=== PATIENT | female | born 1985 | race Caucasian/White ===

== ENCOUNTER 2017-12-14 05:24 | Observation (INO) | payer SELFPAY ==
[~2017-12-14] VITALS: Ht 165.1 cm; Wt 106.6 kg
[2017-12-14] MEDS ORDERED: SODIUM CHLORIDE 0.9% 1000ML 1,000 ML IV STA (05:41)
[2017-12-14] MEDS ORDERED: MoRPHine SULFATE 4 MG/ML 1 ML CARP\\VIAL IV STA ×2 (05:41→07:25)
[2017-12-14] MEDS ORDERED: SODIUM CHLORIDE 0.9% 500ML 500 ML IV STA (05:41)
[2017-12-14] MEDS ORDERED: ONDANSETRON INJ 2 MG/ML 2 ML VIAL IV STA (05:41)
--- NOTE | 2017-12-14 05:47 | EMERGENCY ROOM VISIT NOTE ---
History Report prepared by Silva: Christopher Gee Under the Supervision of: Dr. Livia Ortega M.D. First contact with patient: 05:32 Chief Complaint: ABDOMINAL PAIN Stated Complaint: PAIN IN STOMACH,VOMITING BROWN/BLACK History of Present Illness The patient is a 31 year old female who presents to the Emergency Room with complaints of constant abdominal pain starting around 0300 this morning which is worse with palpation. The patient states that the pain woke her up from sleep and goes into her back, and she has been vomiting up brown vomit. She denies any diarrhea, fever, or blood in her vomit. She states that she felt fine before this, and she had fried chicken and tajik fries for dinner. The patient denies any gall bladder issues in the past, and she still has it. The patient denies any chance of or any medical problems. She states that she smokes a half pack of cigarettes daily. Source of History: patient Onset: 0300 Position: abdomen Timing: constant Modifying Factors (Worsening): other (palpation) Associated Symptoms: + vomiting, No fevers, No diarrhea Review of Systems See HPI for pertinent positives & negatives. A total of 10 systems reviewed and were otherwise negative. Past Medical & Surgical Surgical Problems: (1) H/O tubal ligation (2) History of Family History Patient reports no known family medical history. Social History Smoking Status: Current Every Day Smoker Marital Status: Housing Status: lives with family Current/Historical Medications No Active Prescriptions or Reported Meds Allergies Coded Allergies: No Known Allergies (Unverified , 12/14/17) Physical Exam Vital Signs Date Time Temp Pulse Resp B/P (MAP) Pulse Ox O2 Delivery O2 Flow Rate FiO2 12/14/17 06:12 72 16 110/65 95 Room Air 12/14/17 05:27 36.6 94 18 123/83 99 Room Air Physical Exam Vital signs reviewed. General: Well-appearing female, in no significant distress. HEENT: No scleral icterus, PERRLA, neck supple. Atraumatic. Cardiovascular: Regular rate and rhythm, no extra sounds. Pulmonary: Clear to auscultation bilaterally, normal work of breathing. Abdomen: Tender to palpation in the right upper quadrant with mild left CVA tenderness. Soft, nondistended, positive bowel sounds. Musculoskeletal: Atraumatic, no peripheral edema. Neurologic: Patient awake alert and oriented x 3 Skin: Warm, dry, no rash Medical Decision & Procedures ER Provider Diagnostic Interpretation: Radiology results as stated below per my review and radiologist interpretation: BILIARY ULTRASOUND CLINICAL HISTORY: Epigastric pain COMPARISON STUDY: No previous studies for comparison. FINDINGS: The study was slightly difficult to technical standpoint due to the patient's large body habitus. The body of pancreas appear normal. The tail was nonvisualized. No focal hepatic masses are visualized. There are multiple gallstones. This includes a stone within the gallbladder neck. There is also an equivocal calculus in the region of the left main hepatic duct at the oliva hepatis level. There is no gallbladder wall thickening or pericholecystic fluid. There is no ductal dilatation. The common bile duct measures 5 mm. IMPRESSION: 1. Extensive cholelithiasis 2. Equivocal calculus in the region of the left main hepatic duct 3. No evidence of common bile duct dilatation Electronically signed by: Gerry Holm M.D. 12/14/2017 7:15 AM Dictated Date/Time: 12/14/2017 7:12 AM ABDOMEN 2VIEW W/PA CHEST RTN CLINICAL HISTORY: epigastric pain, vomiting COMPARISON STUDY: No previous studies for comparison. FINDINGS: The erect chest reveals no evidence of free air. There is no evidence of focal pulmonary consolidation.] Erect and supine views of the abdomen reveal no abnormally dilated loops of large or small bowel. There are no transition zone to indicate bowel obstruction. A curvilinear density within the left pelvis, while nonspecific likely represents enteric contents IMPRESSION: No evidence of bowel obstruction. No evidence of free air. Electronically signed by: Gerry Holm M.D. 12/14/2017 6:58 AM Dictated Date/Time: 12/14/2017 6:57 AM Laboratory Results 12/14/17 05:40 Red Blood Count 5.12, Mean Corpuscular Volume 85.2, Mean Corpuscular Hemoglobin 29.7, Mean Corpuscular Hemoglobin Concent 34.9, Mean Platelet Volume 10.1, Neutrophils (%) (Auto) 69.2, Lymphocytes (%) (Auto) 22.3, Monocytes (%) (Auto) 6.2, Eosinophils (%) (Auto) 1.8, Basophils (%) (Auto) 0.2, Neutrophils # (Auto) 7.91, Lymphocytes # (Auto) 2.55, Monocytes # (Auto) 0.71, Eosinophils # (Auto) 0.21, Basophils # (Auto) 0.02 12/14/17 05:40 Test 12/14/17 05:35 12/14/17 05:40 Urine Color YELLOW Urine Appearance CLOUDY (CLEAR) Urine pH 5.5 (4.5-7.5) Urine Specific [place] 1.022 (1.000-1.030) Urine Protein NEG (NEG) Urine Glucose (UA) NEG (NEG) Urine Ketones NEG (NEG) Urine Occult Blood NEG (NEG) Urine Nitrite NEG (NEG) Urine Bilirubin NEG (NEG) Urine Urobilinogen NEG (NEG) Urine Leukocyte Esterase NEG (NEG) Urine WBC (Auto) 1-5 /hpf (0-5) Urine RBC (Auto) 0-4 /hpf (0-4) Urine Hyaline Casts (Auto) 1-5 /lpf (0-5) Urine Epithelial Cells (Auto) >30 /lpf (0-5) Urine Bacteria (Auto) NEG (NEG) Urine Test NEG (NEG) White Blood Count 11.43 K/uL (4.8-10.8) Red Blood Count 5.12 M/uL (4.2-5.4) Hemoglobin 15.2 g/dL (12.0-16.0) Hematocrit 43.6 % (37-47) Mean Corpuscular Volume 85.2 fL (80-100) Mean Corpuscular Hemoglobin 29.7 pg (25-34) Mean Corpuscular Hemoglobin Concent 34.9 g/dl (32-36) Platelet Count 291 K/uL (130-400) Mean Platelet Volume 10.1 fL (7.4-10.4) Neutrophils (%) (Auto) 69.2 % Lymphocytes (%) (Auto) 22.3 % Monocytes (%) (Auto) 6.2 % Eosinophils (%) (Auto) 1.8 % Basophils (%) (Auto) 0.2 % Neutrophils # (Auto) 7.91 K/uL (1.4-6.5) Lymphocytes # (Auto) 2.55 K/uL (1.2-3.4) Monocytes # (Auto) 0.71 K/uL (0.11-0.59) Eosinophils # (Auto) 0.21 K/uL (0-0.5) Basophils # (Auto) 0.02 K/uL (0-0.2) RDW Standard Deviation 40.1 fL (36.4-46.3) RDW Coefficient of Variation 12.9 % (11.5-14.5) Immature Granulocyte % (Auto) 0.3 % Immature Granulocyte # (Auto) 0.03 K/uL (0.00-0.02) Anion Gap 6.0 mmol/L (3-11) Est Creatinine Clear Calc Drug Dose 111.1 ml/min Estimated GFR () 100.1 Estimated GFR (Non- 86.4 BUN/Creatinine Ratio 12.6 (10-20) Calcium Level 10.0 mg/dl (8.5-10.1) Total Bilirubin 0.4 mg/dl (0.2-1) Direct Bilirubin < 0.1 mg/dl (0-0.2) Aspartate Amino Transf (AST/SGOT) 13 U/L (15-37) Alanine Aminotransferase (ALT/SGPT) 23 U/L (12-78) Alkaline Phosphatase 103 U/L (45-117) Total Protein 8.4 gm/dl (6.4-8.2) Albumin 3.7 gm/dl (3.4-5.0) Lipase 202 U/L (73-393) Laboratory results per my review. Medications Administered Medications (Trade) Dose Ordered Sig/Nelia Route Start Time Stop Time Status Last Admin Dose Admin Sodium Chloride 500 ml @ 999 mls/hr Q31M STAT IV 12/14/17 05:41 12/14/17 06:11 DC 12/14/17 06:05 999 MLS/HR Sodium Chloride 1,000 ml @ 200 mls/hr Q5H STAT IV 12/14/17 05:41 12/14/17 10:40 12/14/17 06:05 200 MLS/HR Morphine Sulfate (MoRPHine SULFATE INJ) 4 mg NOW STAT IV 12/14/17 05:41 12/14/17 05:45 DC 12/14/17 06:06 4 MG Ondansetron HCl (Zofran Inj) 4 mg NOW STAT IV 12/14/17 05:41 12/14/17 05:45 DC 12/14/17 06:05 4 MG Morphine Sulfate (MoRPHine SULFATE INJ) 4 mg NOW STAT IV 12/14/17 07:25 12/14/17 07:26 DC 12/14/17 07:34 4 MG Cefoxitin Sodium (Mefoxin 2000mg/ 60 ml D5W) 2,000 mg NOW STAT IV 12/14/17 07:25 12/14/17 07:26 DC 12/14/17 07:49 2,000 MG ED Course 0532: Past medical records reviewed. The patient was evaluated in room A11. A complete history and physical examination was performed. 0541: Zofran 4mg IV, Morphine Sulfate 4mg IV, Sodium Chloride 1000 ml @ 200 mls/ hr IV, Sodium Chloride 500 ml @ 999 mls/hr IV 0718: I reevaluated the patient, and she was still in some pain. I discussed the the plan with her, and she was agreeable. 0725: Cefoxitin Sodium 2000mg IV, Morphine Sulfate 4mg IV 0729: I reviewed the patient's case with Ainsley Laguerre. She will evaluate the patient. 0743: I reviewed the patient's case with Dr. Shira Olvera Hospitalist. He will evaluate the patient for further management. Medical Decision Differential diagnosis: Etiologies such as appendicitis, diverticulitis, PUD, biliary pathology, UTI, pancreatitis, obstruction, mesenteric ischemia, aortic pathology, infections, inflammatory bowel disease, renal colic, as well as others were entertained. This patient was evaluated and appeared to be in no significant distress. The patient was hydrated with normal saline solution, given IV morphine and Zofran for pain. KUB reveals some fecal retention to my evaluation however the ultrasound of right upper quadrant is significant for cholelithiasis. There is a questionable hepatic duct stone. Patient was given 2 g of IV Mefoxin. The laboratory work does not indicate a significant biliary obstructive pathology. Patient did require an additional dose of IV morphine for continued pain. Case was discussed with Dr. Tomlin of general surgery through his [facility]. They have recommended medical admission with possible MRCP. Patient was made aware of the plan and agrees. Medication Reconcilliation Current Medication List: was personally reviewed by me Blood Pressure Screening Patient's blood pressure: Normal blood pressure Consults Time Called: 717 Consulting Physician: Ainsley Laguerre Returned Call: [phone] I reviewed the patient's case with [facility]. She will evaluate the patient. Additional Consults: Time Called: 0740 Consulted Physician: Dr. Shira Olvera Hospitalist Returned Call: 0743 Additional Comments: I reviewed the patient's case with Dr. Shira Olvera Hospitalist. He will evaluate the patient for further management. Impression Primary Impression: Symptomatic cholelithiasis Scribe Attestation The scribe's documentation has been prepared under my direction and personally reviewed by me in its entirety. I confirm that the note above accurately reflects all work, treatment, procedures, and medical decision making performed by me. Departure Information Dispostion Being Evaluated By Hospitalist Prescriptions No Active Prescriptions or Reported Meds Referrals No Doctor, Assigned (PCP) Patient Instructions My [facility]
[2017-12-14 05:56] LABS: BASO % 0.2 %; BASO ABS # 0.02 K/uL (0-0.2); EOS % 1.8 %; EOS ABS # 0.21 K/uL (0-0.5); HEMATOCRIT 43.6 % (37-47); HEMOGLOBIN 15.2 g/dL (12.0-16.0); IG# 0.03 K/uL (0.00-0.02); LYMPH % 22.3 %; LYMPH ABS # 2.55 K/uL (1.2-3.4); MEAN CELL VOLUME 85.2 fL (80-100); MEAN CORPUSCULAR HEMOGLOBIN 29.7 pg (25-34); MEAN CORPUSCULAR HGB CONC 34.9 g/dl (32-36); MEAN PLATELET VOLUME 10.1 fL (7.4-10.4); MONO % 6.2 %; MONO ABS # 0.71 K/uL (0.11-0.59); NEUT % 69.2 %; NEUT ABS # 7.91 K/uL (1.4-6.5); PLATELET COUNT 291 K/uL (130-400); RED CELL DISTRIBUTION WIDTH CV 12.9 % (11.5-14.5); RED CELL DISTRIBUTION WIDTH SD 40.1 fL (36.4-46.3); WHITE BLOOD COUNT 11.43 K/uL (4.8-10.8)
[2017-12-14 06:08] LABS: ALBUMIN 3.7 gm/dl (3.4-5.0); ALT/SGPT 23 U/L (12-78); AST/SGOT 13 U/L (15-37); BLOOD UREA NITROGEN 11 mg/dl (7-18); CARBON DIOXIDE 24 mmol/L (21-32); CREATININE 0.89 mg/dl (0.60-1.20); GLUCOSE 104 mg/dl (70-99); LIPASE 202 U/L (73-393); POTASSIUM 3.9 mmol/L (3.5-5.1); SODIUM 136 mmol/L (136-145)
[2017-12-14 06:11] LABS: ALKALINE PHOSPHATASE 103 U/L (45-117); TOTAL PROTEIN 8.4 gm/dl (6.4-8.2)
--- NOTE | 2017-12-14 06:59 | DIAGNOSTIC IMAGING REPORT ---
ABDOMEN 2VIEW W/PA CHEST RTN CLINICAL HISTORY: epigastric pain, vomiting COMPARISON STUDY: No previous studies for comparison. FINDINGS: The erect chest reveals no evidence of free air. There is no evidence of focal pulmonary consolidation.] Erect and supine views of the abdomen reveal no abnormally dilated loops of large or small bowel. There are no transition zone to indicate bowel obstruction. A curvilinear density within the left pelvis, while nonspecific likely represents enteric contents IMPRESSION: No evidence of bowel obstruction. No evidence of free air. Electronically signed by: Gerry Holm M.D. 12/14/2017 6:58 AM Dictated Date/Time: 12/14/2017 6:57 AM
--- NOTE | 2017-12-14 07:16 | DIAGNOSTIC IMAGING REPORT ---
BILIARY ULTRASOUND CLINICAL HISTORY: Epigastric pain COMPARISON STUDY: No previous studies for comparison. FINDINGS: The study was slightly difficult to technical standpoint due to the patient's large body habitus. The body of pancreas appear normal. The tail was nonvisualized. No focal hepatic masses are visualized. There are multiple gallstones. This includes a stone within the gallbladder neck. There is also an equivocal calculus in the region of the left main hepatic duct at the oliva hepatis level. There is no gallbladder wall thickening or pericholecystic fluid. There is no ductal dilatation. The common bile duct measures 5 mm. IMPRESSION: 1. Extensive cholelithiasis 2. Equivocal calculus in the region of the left main hepatic duct 3. No evidence of common bile duct dilatation Electronically signed by: Gerry Holm M.D. 12/14/2017 7:15 AM Dictated Date/Time: 12/14/2017 7:12 AM
[2017-12-14] MEDS ORDERED: CEFOXITIN 2000MG/60 ML D5W IV STA (07:25)
[2017-12-14 08:29] VITALS: O2SAT 99; Ht 165.1 cm; Wt 106.6 kg
[2017-12-14] MEDS ORDERED: ONDANSETRON INJ 2 MG/ML 2 ML VIAL IV PRN (08:30)
[2017-12-14] MEDS ORDERED: POLYETHYLENE (MIRALAX) 17 GM PACK PO PRN (08:30)
[2017-12-14] MEDS ORDERED: ACETAMINOPHEN 325 MG TAB PO PRN (08:30)
[2017-12-14] MEDS ORDERED: CEFOXITIN IV 2,000 MG in DEXTROSE 5% 50ML 50 ML IV SCH (08:45)
--- NOTE | 2017-12-14 08:59 | History and Physical ---
History & Physical Date & Time of Service: Dec 14, 2017 at 08:38 Chief Complaint: Pain In Stomach,Vomiting Brown/Black Primary Care Physician: No Doctor, Assigned History of Present Illness Source: patient, clinic records, hospital records Pt is 31 y/o F with PMH depression presents to ER with C/O RUQ pain and vomiting started last night around 0300. Woke up with sharp pain to RUQ and epigastric region with nausea and vomiting x 6 episodes brown/yellow color color emesis. Pt states ate fried chicken and macanese fries at approx 2100 yesterday. No prior treatment to ER arrival. She states in past has had mild intermittent RUQ pain during middle of the night but usually only lasts minutes and able to fall back asleep. Unsure any relation with foods. Hx x 2 and tubal ligation, denies other abdominal surgeries. Denies ETOH use. Denies fever/chills, diaphoresis, hematemesis, diarrhea, constipation, melena, hematochezia, RENEE, dizziness, syncope, vision changes, neck pain, CP, SOB, palpitations, cough, extremity edema, rashes, urinary symptoms. FH mother with cholecystomy. In ER pt afebrile. WBC: 11.4. Normal LFT's. negative U/A. Gallbladder u/s: cholelithiasis, equivocal calculus in region L main hepatic duct. Pt was given 500ml bolus NSS, zofran, morphine total 8mg, cefoxitin. Past Medical/Surgical History Medical Problems: (1) Bacterial conjunctivitis of left eye Status: Resolved (2) Otitis media Status: Resolved (3) Pharyngitis Status: Resolved (4) Sinusitis Status: Resolved Surgical Problems: (1) H/O tubal ligation Status: Resolved (2) History of Status: Resolved Family History Diabetes mellitus FH: hyperlipidemia Hypertension Stroke Social History Smoking Status: Current Every Day Smoker (0.5-1ppd x 18 years) Smokeless Tobacco Use: No Alcohol Use: none Drug Use: none Marital Status: Housing status: lives with family Allergies Coded Allergies: No Known Allergies (Unverified , 12/14/17) Home Medications No Active Prescriptions or Reported Meds Review of Systems Constitutional: No fever, No chills, No sweats, No weight loss, No weakness Eyes: No eye pain, No redness, No discharge ENT: No unusual epistaxis, No nasal symptoms, No sore throat Respiratory: No cough, No sputum, No wheezing, No shortness of breath Cardiovascular: No chest pain, No edema, No palpitations Abdomen: + problem reported (see HPI) Musculoskeletal: No joint pain, No muscle pain, No swelling Genitourinary - Female: No dysuria, No urinary frequency, No urinary urgency, No urinary incontinence, No urinary retention, No hematuria Neurologic: No numbness/tingling, No vertigo Psychiatric: + depression symptoms (hx depression several years ago. not on medications for several years and reports stable, no suicidal ideations), No anxiety, No substance abuse Endocrine: No excessive thirst, No excessive urination Hematologic / Lymphatic: No abnormal bleeding/bruising, No clotting problems Integumentary: No rash, No itch Physical Exam Vital Signs Date Time Temp Pulse Resp B/P (MAP) Pulse Ox O2 Delivery O2 Flow Rate FiO2 12/14/17 08:28 59 16 103/65 99 12/14/17 06:12 72 16 110/65 95 Room Air 12/14/17 05:27 36.6 94 18 123/83 99 Room Air General Appearance: no apparent distress (resting comfortably in bed, non ill appearing), + obese Head: normocephalic, atraumatic Eyes: normal inspection, sclerae normal ENT: hearing grossly normal, pharynx normal, + pertinent finding (mucous membranes moist) Neck: supple, trachea midline Respiratory/Chest: chest non-tender, lungs clear, normal breath sounds, no respiratory distress Cardiovascular: regular rate, rhythm, no murmur Abdomen/GI: normal bowel sounds, soft, + pertinent finding (+tenderness to palpation RUQ and epigastric, positive fink's sign, no rebound or guarding) Back: + pertinent finding (+right flank tenderness to palpation, ROM intact) Extremities/Musculoskelatal: normal inspection, normal capillary refill, no pedal edema, normal range of motion Neurologic/Psych: alert, normal mood/affect, oriented x 3 Skin: normal color, warm/dry Diagnostics Laboratory Results Results Past 24 Hours Test 12/14/17 05:35 12/14/17 05:40 Range/Units Urine Color YELLOW Urine Appearance CLOUDY CLEAR Urine pH 5.5 4.5-7.5 Urine Specific [place] 1.022 1.000-1.030 Urine Protein NEG NEG Urine Glucose (UA) NEG NEG Urine Ketones NEG NEG Urine Occult Blood NEG NEG Urine Nitrite NEG NEG Urine Bilirubin NEG NEG Urine Urobilinogen NEG NEG Urine Leukocyte Esterase NEG NEG Urine WBC (Auto) 1-5 0-5 /hpf Urine RBC (Auto) 0-4 0-4 /hpf Urine Hyaline Casts (Auto) 1-5 0-5 /lpf Urine Epithelial Cells (Auto) >30 0-5 /lpf Urine Bacteria (Auto) NEG NEG Urine Test NEG NEG White Blood Count 11.43 4.8-10.8 K/uL Red Blood Count 5.12 4.2-5.4 M/uL Hemoglobin 15.2 12.0-16.0 g/dL Hematocrit 43.6 37-47 % Mean Corpuscular Volume 85.2 80-100 fL Mean Corpuscular Hemoglobin 29.7 25-34 pg Mean Corpuscular Hemoglobin Concent 34.9 32-36 g/dl Platelet Count 291 130-400 K/uL Mean Platelet Volume 10.1 7.4-10.4 fL Neutrophils (%) (Auto) 69.2 % Lymphocytes (%) (Auto) 22.3 % Monocytes (%) (Auto) 6.2 % Eosinophils (%) (Auto) 1.8 % Basophils (%) (Auto) 0.2 % Neutrophils # (Auto) 7.91 1.4-6.5 K/uL Lymphocytes # (Auto) 2.55 1.2-3.4 K/uL Monocytes # (Auto) 0.71 0.11-0.59 K/uL Eosinophils # (Auto) 0.21 0-0.5 K/uL Basophils # (Auto) 0.02 0-0.2 K/uL RDW Standard Deviation 40.1 36.4-46.3 fL RDW Coefficient of Variation 12.9 11.5-14.5 % Immature Granulocyte % (Auto) 0.3 % Immature Granulocyte # (Auto) 0.03 0.00-0.02 K/uL Sodium Level 136 136-145 mmol/L Potassium Level 3.9 3.5-5.1 mmol/L Chloride Level 106 98-107 mmol/L Carbon Dioxide Level 24 21-32 mmol/L Anion Gap 6.0 3-11 mmol/L Blood Urea Nitrogen 11 7-18 mg/dl Creatinine 0.89 0.60-1.20 mg/dl Est Creatinine Clear Calc Drug Dose 111.1 ml/min Estimated GFR () 100.1 Estimated GFR (Non- 86.4 BUN/Creatinine Ratio 12.6 10-20 Random Glucose 104 70-99 mg/dl Calcium Level 10.0 8.5-10.1 mg/dl Total Bilirubin 0.4 0.2-1 mg/dl Direct Bilirubin < 0.1 0-0.2 mg/dl Aspartate Amino Transf (AST/SGOT) 13 15-37 U/L Alanine Aminotransferase (ALT/SGPT) 23 12-78 U/L Alkaline Phosphatase 103 45-117 U/L Total Protein 8.4 6.4-8.2 gm/dl Albumin 3.7 3.4-5.0 gm/dl Lipase 202 73-393 U/L Diagnostic Radiology BILIARY U/S There is no gallbladder wall thickening or pericholecystic fluid. There is no ductal dilatation. The common bile duct measures 5 mm. IMPRESSION: 1. Extensive cholelithiasis 2. Equivocal calculus in the region of the left main hepatic duct 3. No evidence of common bile duct dilatation ABDOMEN 2VIEW W/PA CHEST IMPRESSION: No evidence of bowel obstruction. No evidence of free air. Impression Assessment and Plan RUQ ABDOMINAL PAIN/CHOLELITHIASIS Pt with onset RUQ pain and vomiting 0300 today after eating fried chicken and macanese fries for dinner night before. In ER pt afebrile. Vitals stable. WBC: 11.4. Normal LFT's. negative U/A. Gallbladder u/s: cholelithiasis, equivocal calculus in region L main hepatic duct. Pt was given 500ml bolus NSS, zofran, morphine total 8mg, cefoxitin. Surgery consulted recommended MRCP. -NSS @125ml/hr -morphine prn pain -NPO -general surgery consult -MRCP ordered, if abnormal will consult GI -pt, ptt labs added -CBC, liver enzymes, prp in AM HX DEPRESSION Pt not on meds for several years. Stable. Normal mood and affect today. DVT PROPHYLAXIS -SCD DISPOSITION -admit med surg -Full Code -Follows with Cyndee Doherty [facility] for routine care Pt was seen with Dr Silva. See addendum Attending Addendum Pt was seen and examined. Agreed with Alena HAMMER exam, assessment and plan. 31 y /o F with PMH depression, obese presents to ER with C/O RUQ pain associated with multiple episodes of vomiting. Pt described pain as sharp and starting in her epigastric area that radiated to RUQ area. Denies fever/chills, CP, SOB, palpitations, cough, and urinary symptoms. She had a gallbladder U/S done in the ER that showed extensive cholelithiasis and equivocal calculus in the region of the left main hepatic duct with no evidence of common bile duct dilatation. Received morphine in the ER that helped with the pain. Will keep NPO for now, will get an MRCP. Continue pain control and IVF. Surgery consult. Will monitor electrolytes. Please refer to Alena HAMMER documentation for other problems MD Shira Level of Care Med/Surg Resuscitation Status FULL RESUSCITATION VTE Prophylaxis VTE Risk Assessment Done? Y/N: Yes Risk Level: Low Given or contraindicated: SCD's Additional Copies To Cyndee Evans
[2017-12-14 09:01] LABS: INR 0.9 (0.9-1.1); PTT PATIENT 28.6 SECONDS (21.0-31.0)
[2017-12-14] MEDS ORDERED: IV FLUIDS COMPLETED PRN (10:00)
[2017-12-14] MEDS ORDERED: INFLUENZA VIRUS QUAD VACCINE 0.5 ML SYR IM. ONE (10:00)
[2017-12-14] MEDS ORDERED: INFLUENZA ADMINISTRATION CHARGE ONE (10:00)
--- NOTE | 2017-12-14 10:02 | Surgery Consultation ---
Consultation Date of Consultation: Dec 14, 2017. Attending Physician: Julio Silva M.D. History of Present Illness Pt is 31 y/o F with PMH depression presents to ER with C/O RUQ pain and vomiting started last night around 0300. Woke up with sharp pain to RUQ and epigastric region with nausea and vomiting x 6 episodes brown/yellow color color emesis. Pt states ate fried chicken and spanish fries at approx 2100 yesterday. No prior treatment to ER arrival. She states in past has had mild intermittent RUQ pain during middle of the night but usually only lasts minutes and able to fall back asleep. Unsure any relation with foods. Hx x 2 and tubal ligation, denies other abdominal surgeries. Denies ETOH use. Denies fever/chills, diaphoresis, hematemesis, diarrhea, constipation, melena, hematochezia, RENEE, dizziness, syncope, vision changes, neck pain, CP, SOB, palpitations, cough, extremity edema, rashes, urinary symptoms. FH mother with cholecystomy. In ER pt afebrile. WBC: 11.4. Normal LFT's. negative U/A. Gallbladder u/s: cholelithiasis, equivocal calculus in region L main hepatic duct. Pt was given 500ml bolus NSS, zofran, morphine total 8mg, cefoxitin. I saw pt at bedside, I reviewed pt's H/P with pt, pt is still have some RUQ pain , no nausea, no vomiting, no fever, pt denies diarrhea, Past Medical/Surgical History Medical Problems: (1) Symptomatic cholelithiasis Status: Acute Family History Diabetes mellitus FH: hyperlipidemia Hypertension Stroke Social History Smoking Status: Current Every Day Smoker (0.5-1ppd x 18 years) Smokeless Tobacco Use: No Alcohol Use: none Drug Use: none Marital Status: Housing Status: lives with family Allergies Coded Allergies: No Known Allergies (Unverified , 12/14/17) Home Medications No Active Prescriptions or Reported Meds Current Inpatient Medications Current Inpatient Medications Medications (Trade) Dose Ordered Sig/Nelia Route Start Time Stop Time Status Last Admin Dose Admin Acetaminophen (Tylenol Tab) 650 mg Q4H PRN PO 12/14/17 08:30 01/13/18 08:29 Polyethylene (Miralax Powder Packet) 17 gm DAILY PRN PO 12/14/17 08:30 01/13/18 08:29 Ondansetron HCl (Zofran Inj) 4 mg Q6H PRN IV 12/14/17 08:30 01/13/18 08:29 Morphine Sulfate (MoRPHine SULFATE INJ) 2 mg Q2HWA PRN IV 12/14/17 08:45 12/28/17 08:44 Sodium Chloride 1,000 ml @ 125 mls/hr Q8H IV 12/14/17 08:45 01/13/18 08:44 Influenza Virus Vaccine Quadrival (Flucelvax Quad Vaccine) 0.5 ml ONCE ONCE IM. 12/14/17 10:00 12/14/17 10:01 Review of Systems Constitutional: No fever, No chills, No sweats, No weight loss, No weakness, No fatigue, No problem reported Eyes: No worsening of vision, No eye pain, No redness, No discharge, No diplopia, No problem reported ENT: No hearing loss, No unusual epistaxis, No nasal symptoms, No sore throat, No tinnitus, No dental problems, No trouble swallowing, No problem reported Respiratory: No cough, No sputum, No wheezing, No shortness of breath, No dyspnea on exertion, No dyspnea at rest, No hemoptysis, No problem reported Cardiovascular: No chest pain, No orthopnea, No PND, No edema, No claudication , No palpitations, No problem reported Abdomen: + pain, + nausea Musculoskeletal: No joint pain, No muscle pain, No swelling, No calf pain, No problem reported Genitourinary - Female: No dysuria, No urinary frequency, No urinary urgency, No urinary incontinence, No urinary retention, No hematuria, No dysmenorrhea, No menorrhagia, No metrorrhagia, No rash, No vaginal bleeding, No vaginal discharge, No vaginal itching, No vulvodynia, No , No problem reported Neurologic: No memory loss, No paralysis, No weakness, No numbness/tingling, No vertigo, No balance problems, No problem reported Psychiatric: No depression symptoms, No anhedonism, No anxiety, No insomnia, No substance abuse, No problem reported Endocrine: No fatigue, No excessive thirst, No excessive urination, No problem reported Hematologic / Lymphatic: No abnormal bleeding/bruising, No clotting problems, No swollen lymph nodes, No night sweats, No problem reported Physical Exam Date Time Temp Pulse Resp B/P (MAP) Pulse Ox O2 Delivery O2 Flow Rate FiO2 12/14/17 08:29 99 Room Air 12/14/17 08:28 59 16 103/65 99 12/14/17 06:12 72 16 110/65 95 Room Air 12/14/17 05:27 36.6 94 18 123/83 99 Room Air General Appearance: WD/WN, no apparent distress Head: normocephalic Eyes: normal inspection ENT: normal ENT inspection Neck: supple, no JVD Respiratory/Chest: chest non-tender, lungs clear, normal breath sounds Cardiovascular: regular rate, rhythm, no edema, no gallop, no JVD, no murmur Abdomen/GI: normal bowel sounds, soft, no organomegaly, no pulsatile mass, normal rectal exam, + tenderness (tenderness at RUQ, no rebound pain, ) Extremities/Musculoskelatal: normal inspection, no calf tenderness, normal capillary refill Neurologic/Psych: no motor/sensory deficits, alert, normal mood/affect Skin: normal color, warm/dry, no rash Lymphatic: no adenopathy Laboratory Results Last 24 Hours Test 12/14/17 05:35 12/14/17 05:40 Urine Color YELLOW Urine Appearance CLOUDY Urine pH 5.5 Urine Specific Weidman 1.022 Urine Protein NEG Urine Glucose (UA) NEG Urine Ketones NEG Urine Occult Blood NEG Urine Nitrite NEG Urine Bilirubin NEG Urine Urobilinogen NEG Urine Leukocyte Esterase NEG Urine WBC (Auto) 1-5 /hpf Urine RBC (Auto) 0-4 /hpf Urine Hyaline Casts (Auto) 1-5 /lpf Urine Epithelial Cells (Auto) >30 /lpf Urine Bacteria (Auto) NEG Urine Test NEG White Blood Count 11.43 K/uL Red Blood Count 5.12 M/uL Hemoglobin 15.2 g/dL Hematocrit 43.6 % Mean Corpuscular Volume 85.2 fL Mean Corpuscular Hemoglobin 29.7 pg Mean Corpuscular Hemoglobin Concent 34.9 g/dl Platelet Count 291 K/uL Mean Platelet Volume 10.1 fL Neutrophils (%) (Auto) 69.2 % Lymphocytes (%) (Auto) 22.3 % Monocytes (%) (Auto) 6.2 % Eosinophils (%) (Auto) 1.8 % Basophils (%) (Auto) 0.2 % Neutrophils # (Auto) 7.91 K/uL Lymphocytes # (Auto) 2.55 K/uL Monocytes # (Auto) 0.71 K/uL Eosinophils # (Auto) 0.21 K/uL Basophils # (Auto) 0.02 K/uL RDW Standard Deviation 40.1 fL RDW Coefficient of Variation 12.9 % Immature Granulocyte % (Auto) 0.3 % Immature Granulocyte # (Auto) 0.03 K/uL Prothrombin Time 9.6 SECONDS Prothromb Time International Ratio 0.9 Activated Partial Thromboplast Time 28.6 SECONDS Partial Thromboplastin Ratio 1.1 Sodium Level 136 mmol/L Potassium Level 3.9 mmol/L Chloride Level 106 mmol/L Carbon Dioxide Level 24 mmol/L Anion Gap 6.0 mmol/L Blood Urea Nitrogen 11 mg/dl Creatinine 0.89 mg/dl Est Creatinine Clear Calc Drug Dose 111.1 ml/min Estimated GFR () 100.1 Estimated GFR (Non- 86.4 BUN/Creatinine Ratio 12.6 Random Glucose 104 mg/dl Calcium Level 10.0 mg/dl Total Bilirubin 0.4 mg/dl Direct Bilirubin < 0.1 mg/dl Aspartate Amino Transf (AST/SGOT) 13 U/L Alanine Aminotransferase (ALT/SGPT) 23 U/L Alkaline Phosphatase 103 U/L Total Protein 8.4 gm/dl Albumin 3.7 gm/dl Lipase 202 U/L Assessment & Plan U/S study-FINDINGS: The study was slightly difficult to technical standpoint due to the patient's large body habitus. The body of pancreas appear normal. The tail was nonvisualized. No focal hepatic masses are visualized. There are multiple gallstones. This includes a stone within the gallbladder neck. There is also an equivocal calculus in the region of the left main hepatic duct at the oliva hepatis level. There is no gallbladder wall thickening or pericholecystic fluid. There is no ductal dilatation. The common bile duct measures 5 mm. IMPRESSION: 1. Extensive cholelithiasis 2. Equivocal calculus in the region of the left main hepatic duct 3. No evidence of common bile duct dilatation Assessment: pt is a 31 year old female who was admitted to hospital for acute cholecystitis with gallstones, IMP: acute cholecystitis, cholelithiasis Reocmmend: MRCP, to R/O left main hepatic duct stone, if so, need GI consult. Plan, I recommend to do laparoscopic cholecystectomy, possible open or cholangiogram tomorrow, D/W benefits, risks and alternatives of the procedure, the risks - infection, bleeding, injury CBD, bowel, biliary leak, may need ERCP , pt understood, she agrees with the plan, I answered all questions, NPO from [place] IV antibiotic
--- NOTE | 2017-12-14 10:53 | DIAGNOSTIC IMAGING REPORT ---
ORBIT RADIOGRAPHS 3 VIEWS HISTORY: pre-MRI screening. COMPARISON: None. FINDINGS: There are no radiopaque foreign bodies identified within the orbits. IMPRESSION: No radiopaque foreign bodies identified within the orbits. Electronically signed by: Gerry Holm M.D. 12/14/2017 10:52 AM Dictated Date/Time: 12/14/2017 10:51 AM
--- NOTE | 2017-12-14 11:45 | DIAGNOSTIC IMAGING REPORT ---
MRCP CLINICAL HISTORY: RUQ abd pain abnormal ultrasound. Equivocal left hepatic duct calculus COMPARISON STUDY: Ultrasound study dated 12/14/2017 FINDINGS: There are in numerable gallbladder calculi present. There is a calculus present within the gallbladder neck/proximal cystic duct. No intrahepatic calculi are visualized. There is no common bile duct dilatation. The common bile duct measures 3.7 mm. No common bile duct calculi are visualized. There is no pancreatic ductal dilatation. IMPRESSION: 1. Cholelithiasis 2. Calculi present within the gallbladder neck/proximal cystic duct 3. No common bile duct or intrahepatic biliary calculi are visualized 4. No evidence of common bile duct dilatation. Electronically signed by: Gerry Holm M.D. 12/14/2017 11:44 AM Dictated Date/Time: 12/14/2017 11:38 AM
[2017-12-14] MEDS: CEFOXITIN IV 2,000 MG in DEXTROSE 5% 50ML 50 ML IV SCH ×2 (13:34→20:05)
[2017-12-14 15:07] VITALS: BP 110/69; PULSE 78; TEMP 36.7; O2SAT 96
--- NOTE | 2017-12-14 16:02 | Progress Note ---
Progress Note Date of Service Dec 14, 2017. Progress Note Patient is a 31 year old F admitted with symptomatic gallstones. She has a medical history significant for 1ppd smoker and obesity. She has risk factors for SHAUNA but has never had witnessed apnea and has not had a sleep test. She also experiences gerd symptoms when supine and sometimes sleeps inclined because of this. She treats [id number] when necessary. Labs and studies were reviewed. Cardiopulmonary exam unremarkable and airway exam is reassuring. Risks and benefits of GETA discussed. She is appropriate to proceed as planned with lap solange on 12/15/17.
[2017-12-14] MEDS: SODIUM CHLORIDE 0.9% 1000ML 1,000 ML IV SCH (16:50)
[2017-12-14 22:54] VITALS: BP 114/74; PULSE 64; TEMP 36.8; O2SAT 98
[2017-12-14] MEDS: MoRPHine SULFATE 2 MG/ML CARP IV PRN (23:26)
[2017-12-15] VITALS (8 sets, daily range): BP systolic 104–116; BP diastolic 66–79; PULSE 66–101; TEMP 36.4–37.3; O2SAT 94–98
[2017-12-15] MEDS: SODIUM CHLORIDE 0.9% 1000ML 1,000 ML IV SCH ×4 (01:06→21:09)
[2017-12-15] MEDS: CEFOXITIN IV 2,000 MG in DEXTROSE 5% 50ML 50 ML IV SCH ×4 (02:04→20:00)
[2017-12-15 07:26] LABS: BASO % 0.3 %; BASO ABS # 0.02 K/uL (0-0.2); EOS % 2.7 %; EOS ABS # 0.21 K/uL (0-0.5); HEMOGLOBIN 12.8 g/dL (12.0-16.0); IG# 0.02 K/uL (0.00-0.02); LYMPH % 33.7 %; LYMPH ABS # 2.63 K/uL (1.2-3.4); MEAN CELL VOLUME 87.2 fL (80-100); MEAN CORPUSCULAR HEMOGLOBIN 29.4 pg (25-34); MEAN CORPUSCULAR HGB CONC 33.7 g/dl (32-36); MEAN PLATELET VOLUME 9.6 fL (7.4-10.4); MONO % 8.1 %; MONO ABS # 0.63 K/uL (0.11-0.59); NEUT % 54.9 %; PLATELET COUNT 229 K/uL (130-400); RED CELL DISTRIBUTION WIDTH CV 13.2 % (11.5-14.5); RED CELL DISTRIBUTION WIDTH SD 42.3 fL (36.4-46.3); WHITE BLOOD COUNT 7.81 K/uL (4.8-10.8)
[2017-12-15 08:04] LABS: ALBUMIN 2.7 gm/dl (3.4-5.0); ALT/SGPT 17 U/L (12-78); BLOOD UREA NITROGEN 9 mg/dl (7-18); CALCIUM 7.9 mg/dl (8.5-10.1); CARBON DIOXIDE 24 mmol/L (21-32); CREATININE 0.81 mg/dl (0.60-1.20); GLUCOSE 88 mg/dl (70-99); POTASSIUM 4.1 mmol/L (3.5-5.1); SODIUM 140 mmol/L (136-145)
[2017-12-15 08:07] LABS: ALKALINE PHOSPHATASE 71 U/L (45-117); AST/SGOT 11 U/L (15-37); TOTAL PROTEIN 5.9 gm/dl (6.4-8.2)
[2017-12-15] MEDS ORDERED: PHENYLEPHRINE 100MCG/ML 5ML SYR IV PRN (08:45)
[2017-12-15] MEDS ORDERED: EpHEDrine SULFATE INJ 50 MG/ML AMP IV PRN (08:45)
[2017-12-15] MEDS ORDERED: ONDANSETRON INJ 2 MG/ML 2 ML VIAL IV PRN (08:45)
[2017-12-15] MEDS ORDERED: ATROPINE SULFATE 0.1 MG/ML 5ML SYR IV PRN (08:45)
[2017-12-15] MEDS ORDERED: ONDANSETRON INJ 2 MG/ML 2 ML VIAL ONE ×2 (09:01→12:06)
[2017-12-15] MEDS ORDERED: FENTANYL CITRATE INJ 50 MCG/1 ML 2 ML VIAL ONE ×5 (09:01→13:29)
[2017-12-15] MEDS ORDERED: ROCURONIUM BROMIDE 10 MG/ML 5 ML VIAL IV ONE ×2 (09:01→12:28)
[2017-12-15] MEDS ORDERED: LIDOCAINE HCL 2% 2 ML VIAL (20MG/ML) ONE ×2 (09:01→12:06)
[2017-12-15] MEDS ORDERED: PROPOFOL IV EMULSION 10 MG/ML 20 ML VIAL IV ONE ×2 (09:01→12:06)
[2017-12-15] MEDS ORDERED: DEXAMETHASONE SOD INJ 4 MG/ML VIAL ONE ×2 (09:01→12:06)
[2017-12-15] MEDS ORDERED: MIDAZOLAM HCL 1 MG/ML 2ML VIAL ONE ×2 (09:02→12:06)
[2017-12-15] MEDS: BACITRACIN OINT 15 GM TUBE ONE ×2 (09:50→13:18)
[2017-12-15] MEDS ORDERED: LIDOCAINE HCL 1% 20 ML VIAL ONE ×2 (09:50→10:51)
[2017-12-15] MEDS ORDERED: CONRAY 60% 50 ML VIAL ONE (09:50)
[2017-12-15] MEDS ORDERED: BUPIVACAINE 0.5 % 5 MG/1 ML MPF 30ML VIAL ONE ×2 (09:50→10:52)
[2017-12-15] MEDS ORDERED: ACETAMINOPHEN 1000 MG/100 ML IV IV ONE (10:33)
--- NOTE | 2017-12-15 10:43 | History & Physical Bridge Note ---
H&P Re-Evaluation Bridge Note: I have examined the patient, reviewed the History & Physical and in the interval since the performance of the History & Physical I have noted the following changes of clinical significance: No changes noted
[2017-12-15] MEDS ORDERED: BACITRACIN OINT 15 GM TUBE ONE (10:52)
[2017-12-15] MEDS ORDERED: CEFAZOLIN SOD 1 GM VIAL ONE (12:06)
[2017-12-15] MEDS ORDERED: NEOSTIGMINE METHYLSULFATE 5 MG/5 ML SYR ONE (12:08)
[2017-12-15] MEDS ORDERED: SODIUM CHLORIDE 0.9% INJ 10 ML VIAL ONE (12:08)
[2017-12-15] MEDS ORDERED: GLYCOPYRROLATE INJ 0.2 MG/ML VIAL ONE (12:08)
--- NOTE | 2017-12-15 13:16 | [facility] Post Operative Brief Note ---
Immediate Operative Summary Operative Date Dec 15, 2017. Pre-Operative Diagnosis Acute cholecystitis with gallstones Post-Operative Diagnosis Acute cholecystitis with gallstones Procedure(s) Performed Subtotal Laparoscopic Cholecystectomy Surgeon Dr. Pati Tomlin Outdoor Guide Surgeon(s) Ainsley Guy PA-C Estimated Blood Loss 20 ml Findings Consistent with Post-Op Diagnosis severe inflammation on gallbladder, with gallstones Fluids (cc crystalloids) 800ml Specimens Permanent specimens A: Gallbladder and contents Drains JOE X 1 Anesthesia Type General Complication(s) none Disposition Accompanied Pt To Recover: yes Disposition: Recovery Room / PACU
[2017-12-15] MEDS: HYDROmorphone INJ 2 MG/ML SYR/VIAL IV PRN ×3 (13:43→13:57)
--- NOTE | 2017-12-15 14:11 | Anesthesiology Progress Note ---
Anesthesia Post Op Note Date & Time Dec 15, 2017 at 14:11 Vital Signs Pain Intensity: 0 Vital Signs Past 12 Hours Date Time Temp Pulse Resp B/P (MAP) Pulse Ox O2 Delivery O2 Flow Rate FiO2 12/15/17 14:00 62 14 116/71 96 Nasal Cannula 3 12/15/17 13:50 88 20 102/79 93 Oxymask 6 12/15/17 13:40 86 16 123/74 94 Oxymask 10 12/15/17 13:33 36.9 87 16 131/74 96 Oxymask 10 12/15/17 08:00 Room Air 12/15/17 07:15 36.8 66 16 104/70 (81) 94 Room Air Notes Mental Status: alert / awake / arousable, participated in evaluation Pt Amnestic to Procedure: Yes Nausea / Vomiting: adequately controlled Pain: adequately controlled Airway Patency, RR, SpO2: stable & adequate BP & HR: stable & adequate Hydration State: stable & adequate Anesthetic Complications: no major complications apparent
--- NOTE | 2017-12-15 14:42 | OPERATIVE REPORT ---
DATE OF OPERATION: 12/15/2017 PREOPERATIVE DIAGNOSES: Acute cholecystitis and cholelithiasis. POSTOPERATIVE DIAGNOSES: Same. OPERATION: Laparoscopic subtotal cholecystectomy and JOE drainage x1. SURGEON: Pati Tomlin MD STERILE INSTRUMENT TECHNICIAN: Ainsley Lares PA-C ANESTHESIA: General. ESTIMATED BLOOD LOSS: About 20 mL. IV FLUIDS: 800 mL. FINDINGS: Severe inflammation on the gallbladder wall and acute cholecystitis with cholelithiasis. COMPLICATIONS: None. INDICATIONS FOR THE PROCEDURE: This is a 31-year-old female who presented to the ED with severe right upper quadrant pain and the patient was admitted to the hospital for acute cholecystitis and cholelithiasis. We decided to take the patient to the OR and do a laparoscopic cholecystectomy, possible open and possible cholangiogram. I did talk to the patient and the patient's family member about the benefit, risk, and alternate procedure. I indicated the risks may include, but not limited such as bleeding, infection, bile leak, injury to common bile duct, injury to bowel, may need a subtotal cholecystectomy, and may need ERCP. They understand and the patient signed informed consent and I answered all questions. DETAILS OF PROCEDURE: We brought the patient to the OR and put the patient in the supine position. The patient received SCD on bilateral legs to prevent DVT. Also, the patient received 2 grams Ancef IV for prophylactic antibiotic. The patient received general anesthesia without difficulty. The abdomen was prepped and draped in the routine sterile fashion. After a timeout, I injected local anesthesia by using 1% lidocaine mixed with 0.5% Marcaine just above umbilicus. I made a small incision just above the umbilicus, opened fascia and opened peritoneum under direct vision. I put a Ector trocar in and connected to CO2 to create pneumoperitoneum, flow rate at 6 liter per minute and pressure not more than 14 mmHg. Once we get a nice pneumoperitoneum, we put the camera in to look around the abdomen, showing no more findings on the stomach, small bowel, large bowel and the liver; however, the gallbladder showing significant inflammation, gallbladder wall significant thickening, and edema. Then, we put another 3.5-mm trocar on the right upper quadrant. Once all trocars in, we hold the base of the gallbladder, put direction to the diaphragm and used another grasper to hold the pouch over the gallbladder, put latter to try to expose the triangle of Calot; however, based on the gallbladder's significant inflammation and edema, it was difficult to find the cystic duct. At this moment, we decided to do the subtotal cholecystectomy using top-down technique to take down 95% the gallbladder and we used the Endoloop to close near the gallbladder the cystic duct and another Endoloop about 1 cm away the first Endoloop and then I used Harmonic to take down 95% of the gallbladder and also at this moment, we identified the cystic artery and mobilized. I put two 5-mm metal clips on the proximal cystic artery, one on the distal and then I removed the most of the gallbladder, inside there are multiple gallstones and through the catch bag. Then, we reinserted a Ector trocar in and I used scissor to remove the Endoloop on the remainder of the gallbladder side and then opened the gallbladder lumen and removed couple of the gallstone and then, we double checked to make sure no stones left behind and at this moment, we decided to use the Endo-NEHAL staple, transection the gallbladder near the gallbladder cystic duct. Rechecked no active bleeding, no leak and then we removed piece of the gallbladder through the catch bag again. Hemostasis obtained. I decided to put one 10-mm JOE drainage near the liver bed and we removed all of the trocars under direct vision. No active bleeding from trocar sites. The pneumoperitoneum was released. Then, I used 3-0 Vicryl to close the umbilical incision fascial layer [id number] x2 and also closed the epigastric incision using #1 Vicryl [id number] x2 fascial layer. I closed the subcutaneous layer by using 2-0 Vicryl interrupted and closed skin by using 4-0 Vicryl continuous running. Another two 5-mm trocar sites closed skin only by using 4-0 Vicryl continuous running. We put the dressing on. The patient tolerated the procedure well. All the instrument, needle and sponge count correct x2 at the end of case. Specimen sent to pathology. The patient transferred to recovery room in stable condition. After procedure, I did talk to the patient's family member about OR finding and procedure we did, they understand. I attest to the content of the Intraoperative Record and any orders documented therein. Any exceptions are noted below. NADER
[2017-12-15] MEDS ORDERED: NURSING VERBAL MED ORDER ONE (16:00)
[2017-12-15] MEDS ORDERED: OXYCODONE/ACETAMINOPHEN 5-325 TAB PO PRN (17:00)
[2017-12-15] MEDS: MoRPHine SULFATE 2 MG/ML CARP IV PRN (17:04)
--- NOTE | 2017-12-15 18:09 | Progress Note ---
Medicine Progress Note Date & Time of Visit: Dec 15, 2017 at 16:56. Subjective Pt was seen and examined Sitting in chair with no distress Pt had gallbladder surgery done this morning she said that she is having some pain she is tolerated clear liquid diet Denies any chest pain, palpitation, dizziness and SOB Objective Last 8 Hrs Date Time Temp Pulse Resp B/P (MAP) Pulse Ox O2 Delivery O2 Flow Rate FiO2 12/15/17 16:46 36.6 94 16 116/74 (88) 94 Room Air 12/15/17 15:48 37.3 75 16 109/73 (85) 98 Nasal Cannula 2.0 12/15/17 15:40 Nasal Cannula 2.0 12/15/17 15:20 36.4 74 16 107/70 (82) 96 Nasal Cannula 2.0 12/15/17 14:50 Nasal Cannula 12/15/17 14:45 36.7 82 20 111/74 (86) 96 Nasal Cannula 2.0 12/15/17 14:45 Nasal Cannula 12/15/17 14:20 67 14 115/55 95 Nasal Cannula 3 12/15/17 14:10 36.7 62 16 119/70 95 Nasal Cannula 3 12/15/17 14:00 62 14 116/71 96 Nasal Cannula 3 12/15/17 13:50 88 20 102/79 93 Oxymask 6 12/15/17 13:40 86 16 123/74 94 Oxymask 10 12/15/17 13:33 36.9 87 16 131/74 96 Oxymask 10 Physical Exam: General- No acute distress Head- atraumatic Eyes- PERRL, EOMI ENT- oropharynx clear Neck- supple, no JVD Lungs- clear to auscultation Heart- regular rhythm Abdomen- +bowel sounds, +tenderness, + JOE drainage Extremities- no calf tenderness Neuro- alert, oriented x 3; PERRL, EOMI Skin- warm & dry Laboratory Results: Last 24 Hours Test 12/15/17 07:07 White Blood Count 7.81 K/uL Red Blood Count 4.36 M/uL Hemoglobin 12.8 g/dL Hematocrit 38.0 % Mean Corpuscular Volume 87.2 fL Mean Corpuscular Hemoglobin 29.4 pg Mean Corpuscular Hemoglobin Concent 33.7 g/dl Platelet Count 229 K/uL Mean Platelet Volume 9.6 fL Neutrophils (%) (Auto) 54.9 % Lymphocytes (%) (Auto) 33.7 % Monocytes (%) (Auto) 8.1 % Eosinophils (%) (Auto) 2.7 % Basophils (%) (Auto) 0.3 % Neutrophils # (Auto) 4.30 K/uL Lymphocytes # (Auto) 2.63 K/uL Monocytes # (Auto) 0.63 K/uL Eosinophils # (Auto) 0.21 K/uL Basophils # (Auto) 0.02 K/uL RDW Standard Deviation 42.3 fL RDW Coefficient of Variation 13.2 % Immature Granulocyte % (Auto) 0.3 % Immature Granulocyte # (Auto) 0.02 K/uL Sodium Level 140 mmol/L Potassium Level 4.1 mmol/L Chloride Level 109 mmol/L Carbon Dioxide Level 24 mmol/L Anion Gap 7.0 mmol/L Blood Urea Nitrogen 9 mg/dl Creatinine 0.81 mg/dl Est Creatinine Clear Calc Drug Dose 122.1 ml/min Estimated GFR () 112.2 Estimated GFR (Non- 96.8 BUN/Creatinine Ratio 10.6 Random Glucose 88 mg/dl Calcium Level 7.9 mg/dl Total Bilirubin 0.4 mg/dl Direct Bilirubin < 0.1 mg/dl Aspartate Amino Transf (AST/SGOT) 11 U/L Alanine Aminotransferase (ALT/SGPT) 17 U/L Alkaline Phosphatase 71 U/L Total Protein 5.9 gm/dl Albumin 2.7 gm/dl Globulin 3.2 gm/dl Albumin/Globulin Ratio 0.8 Assessment & Plan Acute cholecystitis with gallstones Present with RUQ abdominal pain associated with vomiting Gall bladder U/S on admission showed extensive cholelithiasis and equivocal calculus in the region of the left main hepatic duct MRCP done yesterday showed cholelithiasis and calculi present within the gallbladder neck/proximal cystic duct S/P Subtotal Laparoscopic Cholecystectomy performed today by Dr. Tomlin Continue pain control On clear liquid diet JOE drainage . Monitor electrolytes ELEVATED WBC Possible reactive WBC trending down to normal On cefoxitin HX DEPRESSION Stable. DVT PROPHYLAXIS -SCD/ambulating CODE STATUS FULL CODE DISPOSITION Will discharge once medically stable Consultants: SURGERY Current Inpatient Medications: Current Inpatient Medications Medications (Trade) Dose Ordered Sig/Nelia Route Start Time Stop Time Status Last Admin Dose Admin Acetaminophen (Tylenol Tab) 650 mg Q4H PRN PO 12/14/17 08:30 3/2/18 08:29 Polyethylene (Miralax Powder Packet) 17 gm DAILY PRN PO 12/14/17 08:30 01/13/18 08:29 Ondansetron HCl (Zofran Inj) 4 mg Q6H PRN IV 12/14/17 08:30 01/13/18 08:29 Morphine Sulfate (MoRPHine SULFATE INJ) 2 mg Q2HWA PRN IV 12/14/17 08:45 12/28/17 08:44 12/15/17 17:04 2 MG Sodium Chloride 1,000 ml @ 125 mls/hr Q8H IV 12/14/17 08:45 01/13/18 08:44 12/15/17 09:24 125 MLS/HR Miscellaneous (Iv Fluids Completed) 1 ea PRN PRN N/A 12/14/17 10:00 12/14/18 09:59 Cefoxitin Sodium 2000 mg/Dextrose 60 ml @ 100 mls/hr Q6H IV 12/14/17 14:00 12/24/17 13:59 12/15/17 15:10 100 MLS/HR Oxycodone/ Acetaminophen (Percocet 5-325mg Tab) 1 tab Q4H PRN PO 12/15/17 17:00 12/29/17 16:59 Oxycodone/ Acetaminophen (Percocet 5-325mg Tab) 2 tab Q4H PRN PO 12/15/17 17:00 12/29/17 16:59
[2017-12-15] MEDS: OXYCODONE/ACETAMINOPHEN 5-325 TAB PO PRN ×2 (18:17→20:00)
--- NOTE | 2017-12-15 21:55 | Surgery Progress Note ---
Surgery Progress Note Date of Service Dec 15, 2017. Subjective + feeling well F/U S/P laparoscopic subtotal cholecystectomy, POD 10 hour, pt is doing fine, less abdominal pain, no nausea, no vomiting, I inform pt about OR finding and the procedure pt had, she understood, Objective Vital Signs: Date Time Temp Pulse Resp B/P (MAP) Pulse Ox O2 Delivery O2 Flow Rate FiO2 12/15/17 18:45 36.5 81 16 110/79 (89) 95 Room Air 12/15/17 17:50 36.8 101 18 107/67 (80) 94 Room Air 12/15/17 16:46 36.6 94 16 116/74 (88) 94 Room Air 12/15/17 15:48 37.3 75 16 109/73 (85) 98 Nasal Cannula 2.0 12/15/17 15:40 Nasal Cannula 2.0 12/15/17 15:20 36.4 74 16 107/70 (82) 96 Nasal Cannula 2.0 12/15/17 14:50 Nasal Cannula 12/15/17 14:45 36.7 82 20 111/74 (86) 96 Nasal Cannula 2.0 12/15/17 14:45 Nasal Cannula 12/15/17 14:20 67 14 115/55 95 Nasal Cannula 3 12/15/17 14:10 36.7 62 16 119/70 95 Nasal Cannula 3 12/15/17 14:00 62 14 116/71 96 Nasal Cannula 3 12/15/17 13:50 88 20 102/79 93 Oxymask 6 12/15/17 13:40 86 16 123/74 94 Oxymask 10 12/15/17 13:33 36.9 87 16 131/74 96 Oxymask 10 12/15/17 08:00 Room Air 12/15/17 07:15 36.8 66 16 104/70 (81) 94 Room Air 12/14/17 23:30 Room Air 12/14/17 22:54 36.8 64 16 114/74 (87) 98 Room Air General Appearance: WD/WN, no apparent distress Head: normocephalic Neck: supple, no JVD Respiratory/Chest: chest non-tender, lungs clear Cardiovascular: regular rate, rhythm, no edema, no gallop, no JVD Abdomen: normal bowel sounds, non distended, soft (slightly tenderness at incision sites, ) Incision(s): clean, dry, intact Extremities: normal range of motion, non-tender, normal inspection Laboratory Results: Results Past 24 Hours Test 12/15/17 07:07 Range/Units White Blood Count 7.81 4.8-10.8 K/uL Red Blood Count 4.36 4.2-5.4 M/uL Hemoglobin 12.8 12.0-16.0 g/dL Hematocrit 38.0 37-47 % Mean Corpuscular Volume 87.2 80-100 fL Mean Corpuscular Hemoglobin 29.4 25-34 pg Mean Corpuscular Hemoglobin Concent 33.7 32-36 g/dl Platelet Count 229 130-400 K/uL Mean Platelet Volume 9.6 7.4-10.4 fL Neutrophils (%) (Auto) 54.9 % Lymphocytes (%) (Auto) 33.7 % Monocytes (%) (Auto) 8.1 % Eosinophils (%) (Auto) 2.7 % Basophils (%) (Auto) 0.3 % Neutrophils # (Auto) 4.30 1.4-6.5 K/uL Lymphocytes # (Auto) 2.63 1.2-3.4 K/uL Monocytes # (Auto) 0.63 0.11-0.59 K/uL Eosinophils # (Auto) 0.21 0-0.5 K/uL Basophils # (Auto) 0.02 0-0.2 K/uL RDW Standard Deviation 42.3 36.4-46.3 fL RDW Coefficient of Variation 13.2 11.5-14.5 % Immature Granulocyte % (Auto) 0.3 % Immature Granulocyte # (Auto) 0.02 0.00-0.02 K/uL Sodium Level 140 136-145 mmol/L Potassium Level 4.1 3.5-5.1 mmol/L Chloride Level 109 98-107 mmol/L Carbon Dioxide Level 24 21-32 mmol/L Anion Gap 7.0 3-11 mmol/L Blood Urea Nitrogen 9 7-18 mg/dl Creatinine 0.81 0.60-1.20 mg/dl Est Creatinine Clear Calc Drug Dose 122.1 ml/min Estimated GFR () 112.2 Estimated GFR (Non- 96.8 BUN/Creatinine Ratio 10.6 10-20 Random Glucose 88 70-99 mg/dl Calcium Level 7.9 8.5-10.1 mg/dl Total Bilirubin 0.4 0.2-1 mg/dl Direct Bilirubin < 0.1 0-0.2 mg/dl Aspartate Amino Transf (AST/SGOT) 11 15-37 U/L Alanine Aminotransferase (ALT/SGPT) 17 12-78 U/L Alkaline Phosphatase 71 45-117 U/L Total Protein 5.9 6.4-8.2 gm/dl Albumin 2.7 3.4-5.0 gm/dl Globulin 3.2 2.5-4.0 gm/dl Albumin/Globulin Ratio 0.8 0.9-2 Assessment & Plan pt is doing fine, minimal JOE drainage, will F/U, repeat labs in am,
[2017-12-16] MEDS: MoRPHine SULFATE 2 MG/ML CARP IV PRN (00:52)
[2017-12-16] MEDS ORDERED: NITROGLYCERIN 0.4 MG SL PER TAB CHARGE SL STA (01:45)
[2017-12-16] MEDS ORDERED: MoRPHine SULFATE 4 MG/ML 1 ML CARP\\VIAL IV PRN (02:00)
[2017-12-16] MEDS: CEFOXITIN IV 2,000 MG in DEXTROSE 5% 50ML 50 ML IV SCH ×3 (02:12→13:30)
[2017-12-16] MEDS ORDERED: GI COCKTAIL PO STA (02:16)
[2017-12-16] MEDS ORDERED: ALUMINUM/MAGNESIUM SUSP 18 ML, LIDOCAINE HCL 2% VISCOUS SOLN 6 ML, BARCODE IDENTIFIER 1 EA PO STA ×2 (02:20)
[2017-12-16] MEDS: SODIUM CHLORIDE 0.9% 1000ML 1,000 ML IV SCH ×3 (02:24→12:24)
[2017-12-16 02:36] LABS: BASO % 0.1 %; BASO ABS # 0.01 K/uL (0-0.2); HEMATOCRIT 38.5 % (37-47); HEMOGLOBIN 13.2 g/dL (12.0-16.0); IG# 0.03 K/uL (0.00-0.02); LYMPH ABS # 1.36 K/uL (1.2-3.4); MEAN CELL VOLUME 85.6 fL (80-100); MEAN CORPUSCULAR HEMOGLOBIN 29.3 pg (25-34); MEAN CORPUSCULAR HGB CONC 34.3 g/dl (32-36); MEAN PLATELET VOLUME 9.6 fL (7.4-10.4); MONO % 4.6 %; MONO ABS # 0.62 K/uL (0.11-0.59); NEUT % 85.1 %; NEUT ABS # 11.55 K/uL (1.4-6.5); PLATELET COUNT 279 K/uL (130-400); RED CELL DISTRIBUTION WIDTH CV 12.9 % (11.5-14.5); RED CELL DISTRIBUTION WIDTH SD 40.2 fL (36.4-46.3); WHITE BLOOD COUNT 13.57 K/uL (4.8-10.8)
[2017-12-16 02:47] LABS: PTT PATIENT 27.4 SECONDS (21.0-31.0)
[2017-12-16 03:12] LABS: ALBUMIN 3.1 gm/dl (3.4-5.0); ALKALINE PHOSPHATASE 81 U/L (45-117); ALT/SGPT 29 U/L (12-78); AST/SGOT 23 U/L (15-37); BLOOD UREA NITROGEN 7 mg/dl (7-18); CARBON DIOXIDE 23 mmol/L (21-32); CREATININE 0.78 mg/dl (0.60-1.20); GLUCOSE 104 mg/dl (70-99); LIPASE 115 U/L (73-393); POTASSIUM 4.1 mmol/L (3.5-5.1); SODIUM 137 mmol/L (136-145); TOTAL PROTEIN 6.9 gm/dl (6.4-8.2)
[2017-12-16] MEDS ORDERED: CALCIUM CARBONATE 500 MG CHEWABLE PO PRN (03:45)
[2017-12-16 03:55] VITALS: BP 103/62; PULSE 82; TEMP 36.8; O2SAT 97
[2017-12-16] MEDS: OXYCODONE/ACETAMINOPHEN 5-325 TAB PO PRN ×2 (06:26→13:04)
[2017-12-16 07:38] VITALS: BP 102/66; PULSE 66; TEMP 36.8; O2SAT 96
--- NOTE | 2017-12-16 07:51 | Anesthesiology Progress Note ---
Anesthesia Post Op Note Date & Time Dec 16, 2017 at 07:51 Vital Signs Pain Intensity: 4.0 Vital Signs Past 12 Hours Date Time Temp Pulse Resp B/P (MAP) Pulse Ox O2 Delivery O2 Flow Rate FiO2 12/16/17 07:38 36.8 66 16 102/66 (78) 96 Room Air 12/16/17 07:31 Room Air 12/16/17 03:55 36.8 82 16 103/62 (76) 97 Room Air 12/15/17 23:15 Room Air 12/15/17 23:15 36.9 67 16 104/66 (79) 97 Room Air Notes Mental Status: alert / awake / arousable, participated in evaluation Pt Amnestic to Procedure: Yes Nausea / Vomiting: adequately controlled Pain: adequately controlled Airway Patency, RR, SpO2: stable & adequate BP & HR: stable & adequate Hydration State: stable & adequate Anesthetic Complications: no major complications apparent
[2017-12-16] MEDS ORDERED: NURSING VERBAL MED ORDER ONE (12:45)
[2017-12-16] MEDS ORDERED: OXYC-57 PO (13:52)
--- NOTE | 2017-12-16 13:57 | Discharge Instructions ---
Discharge Instructions Date of Service Dec 16, 2017. Admission Reason for Admission: Ruq Abdominal Pain, Cholelithiasis Discharge Discharge Diagnosis / Problem: same, cholecystitis (inflammation of gallbladder ) Discharge Goals Goal(s): Decrease discomfort, Improve function Activity Recommendations Activity Limitations: as noted below No heavy lifting over 20 pounds for 3 weeks No strenuous activity until cleared by surgeon No submerging incisions underwater for 2 weeks (no bathing, swimming, or hot tubs) No driving while taking narcotic pain medication or until you are pain free . Instructions / Follow-Up Instructions / Follow-Up you may shower in 2 days. Sponge bath and wash hair in meantime. Keep dressings clean and dry After showering, remove outer dressings. May need to replace dressing of drain site. Leave steri strips on incisions for 7 days and then remove. They may fall off on their own that is okay. Walking and light activity is encouraged You will be given narcotic pain medication as needed for moderate to severe pain. This medication may make you drowsy. You may take extra strength Tylenol/ Ibuprofen as needed for mild pain. Follow-up in surgical office in 2 weeks, please call office at [phone] to make an appointment Current Hospital Diet Patient's current hospital diet: Regular Diet Discharge Diet Recommended Diet: Regular Diet Procedures Procedures Performed: Subtotal Laparoscopic Cholecystectomy Pending Studies Studies pending at discharge: yes List of pending studies: gallbladder pathology will be reviewed at follow up visit Medical Emergencies . Who to Call and When: Medical Emergencies: If at any time you feel your situation is an emergency, please call 911 immediately. . Non-Emergent Contact Non-Emergency issues call your: Primary Care Provider, Surgeon Call Non-Emergent contact if: you have a fever, temperature is above 101, your pain is not controlled, your pain is worsening, your pain is unusual for you, wound has increased drainage, wound has increased redness, wound has increased pain . "Provider Documentation" section prepared by Ainsley Guy. . VTE Core Measure Inpt VTE Proph given/why not?: SCD's [place] Drug Monitoring Program Search Results: patient reviewed within database, no issues identified
[2017-12-16 14:24] VITALS: BP 102/66; PULSE 66; TEMP 36.8; O2SAT 96
--- NOTE | 2017-12-16 14:36 | Surgery Progress Note ---
Surgery Progress Note Date of Service Dec 16, 2017. Subjective Post OP Day: 1 (s/p Laparoscopic cholecystectomy) + feeling well, + complaints (moderaet pain at incision sites and RUQ, controlled), + ambulating, + pain controlled, + nausea, + diet, No chest pain, No SOB, No vomiting Had chest pain last night, negative EKG and Troponin. Enloe to be Heartburn. Chest pain has resolved Tolerated clears for breakfast Slight nausea after regular lunch but resolved Pain controlled with oral meds Objective Vital Signs: Date Time Temp Pulse Resp B/P (MAP) Pulse Ox O2 Delivery O2 Flow Rate FiO2 12/16/17 14:24 36.8 66 16 96 Room Air 12/16/17 07:38 36.8 66 16 102/66 (78) 96 Room Air 12/16/17 07:31 Room Air 12/16/17 03:55 36.8 82 16 103/62 (76) 97 Room Air 12/15/17 23:15 Room Air 12/15/17 23:15 36.9 67 16 104/66 (79) 97 Room Air 12/15/17 18:45 36.5 81 16 110/79 (89) 95 Room Air 12/15/17 17:50 36.8 101 18 107/67 (80) 94 Room Air 12/15/17 16:46 36.6 94 16 116/74 (88) 94 Room Air 12/15/17 15:48 37.3 75 16 109/73 (85) 98 Nasal Cannula 2.0 12/15/17 15:40 Nasal Cannula 2.0 12/15/17 15:20 36.4 74 16 107/70 (82) 96 Nasal Cannula 2.0 12/15/17 14:50 Nasal Cannula 12/15/17 14:45 36.7 82 20 111/74 (86) 96 Nasal Cannula 2.0 12/15/17 14:45 Nasal Cannula Physical Exam: BK drainage (serosanguineous) General Appearance: WD/WN, no apparent distress Head: normocephalic, atraumatic Neck: trachea midline Respiratory/Chest: no respiratory distress, no accessory muscle use Abdomen: non distended, soft, no organomegaly, + tenderness (at incision sites , appropriate post op) Incision(s): clean, dry (dressings clean and dry, incisions not inspected) Laboratory Results: Results Past 24 Hours Test 12/16/17 02:20 Range/Units White Blood Count 13.57 4.8-10.8 K/uL Red Blood Count 4.50 4.2-5.4 M/uL Hemoglobin 13.2 12.0-16.0 g/dL Hematocrit 38.5 37-47 % Mean Corpuscular Volume 85.6 80-100 fL Mean Corpuscular Hemoglobin 29.3 25-34 pg Mean Corpuscular Hemoglobin Concent 34.3 32-36 g/dl Platelet Count 279 130-400 K/uL Mean Platelet Volume 9.6 7.4-10.4 fL Neutrophils (%) (Auto) 85.1 % Lymphocytes (%) (Auto) 10.0 % Monocytes (%) (Auto) 4.6 % Eosinophils (%) (Auto) 0.0 % Basophils (%) (Auto) 0.1 % Neutrophils # (Auto) 11.55 1.4-6.5 K/uL Lymphocytes # (Auto) 1.36 1.2-3.4 K/uL Monocytes # (Auto) 0.62 0.11-0.59 K/uL Eosinophils # (Auto) 0.00 0-0.5 K/uL Basophils # (Auto) 0.01 0-0.2 K/uL RDW Standard Deviation 40.2 36.4-46.3 fL RDW Coefficient of Variation 12.9 11.5-14.5 % Immature Granulocyte % (Auto) 0.2 % Immature Granulocyte # (Auto) 0.03 0.00-0.02 K/uL Activated Partial Thromboplast Time 27.4 21.0-31.0 SECONDS Partial Thromboplastin Ratio 1.1 Sodium Level 137 136-145 mmol/L Potassium Level 4.1 3.5-5.1 mmol/L Chloride Level 108 98-107 mmol/L Carbon Dioxide Level 23 21-32 mmol/L Anion Gap 6.0 3-11 mmol/L Blood Urea Nitrogen 7 7-18 mg/dl Creatinine 0.78 0.60-1.20 mg/dl Est Creatinine Clear Calc Drug Dose 126.8 ml/min Estimated GFR () 117.4 Estimated GFR (Non- 101.3 BUN/Creatinine Ratio 9.0 10-20 Random Glucose 104 70-99 mg/dl Calcium Level 8.0 8.5-10.1 mg/dl Magnesium Level 1.8 1.8-2.4 mg/dl Total Bilirubin 0.5 0.2-1 mg/dl Aspartate Amino Transf (AST/SGOT) 23 15-37 U/L Alanine Aminotransferase (ALT/SGPT) 29 12-78 U/L Alkaline Phosphatase 81 45-117 U/L Troponin I < 0.015 0-0.045 ng/ml Total Protein 6.9 6.4-8.2 gm/dl Albumin 3.1 3.4-5.0 gm/dl Globulin 3.8 2.5-4.0 gm/dl Albumin/Globulin Ratio 0.8 0.9-2 Lipase 115 73-393 U/L Assessment & Plan POD # 1 s/p laparoscopic subtotal cholecystectomy -vitals stable, afebrile - slight leukocytosis, most likely post op - moderate pain, controlled - t. bili and lfts wnl - ambulating and urinating without difficulty Plan: From surgical standpoint, okay for discharge Discontinue bk drain Discharge instructions reviewed Rx for Percocet prn pain Follow up surgical office [address] Tomlin who agrees with above
[2017-12-16 15:03] VITALS: BP 108/69; PULSE 78; TEMP 36.8; O2SAT 96
--- NOTE | 2017-12-16 15:33 | Progress Note ---
Medicine Progress Note Date & Time of Visit: Dec 16, 2017 at 15:29. Subjective Pt was seen and examined Sitting in chair with no distress She said that she does has some pain from the surgical site Tolerated clear liquid diet Denies any chest pain, palpitation, dizziness and SOB Objective Last 8 Hrs Date Time Temp Pulse Resp B/P (MAP) Pulse Ox O2 Delivery O2 Flow Rate FiO2 12/16/17 15:03 36.8 78 18 108/69 (82) 96 Room Air 12/16/17 14:24 36.8 66 16 96 Room Air 12/16/17 07:38 36.8 66 16 102/66 (78) 96 Room Air 12/16/17 07:31 Room Air Physical Exam: General- No acute distress Head- atraumatic Eyes- PERRL, EOMI ENT- oropharynx clear Neck- supple, no JVD Lungs- clear to auscultation Heart- regular rhythm Abdomen- +bowel sounds, +tenderness, + JOE drainage Extremities- no calf tenderness Neuro- alert, oriented x 3; PERRL, EOMI Skin- warm & dry Laboratory Results: Last 24 Hours Test 12/16/17 02:20 White Blood Count 13.57 K/uL Red Blood Count 4.50 M/uL Hemoglobin 13.2 g/dL Hematocrit 38.5 % Mean Corpuscular Volume 85.6 fL Mean Corpuscular Hemoglobin 29.3 pg Mean Corpuscular Hemoglobin Concent 34.3 g/dl Platelet Count 279 K/uL Mean Platelet Volume 9.6 fL Neutrophils (%) (Auto) 85.1 % Lymphocytes (%) (Auto) 10.0 % Monocytes (%) (Auto) 4.6 % Eosinophils (%) (Auto) 0.0 % Basophils (%) (Auto) 0.1 % Neutrophils # (Auto) 11.55 K/uL Lymphocytes # (Auto) 1.36 K/uL Monocytes # (Auto) 0.62 K/uL Eosinophils # (Auto) 0.00 K/uL Basophils # (Auto) 0.01 K/uL RDW Standard Deviation 40.2 fL RDW Coefficient of Variation 12.9 % Immature Granulocyte % (Auto) 0.2 % Immature Granulocyte # (Auto) 0.03 K/uL Activated Partial Thromboplast Time 27.4 SECONDS Partial Thromboplastin Ratio 1.1 Sodium Level 137 mmol/L Potassium Level 4.1 mmol/L Chloride Level 108 mmol/L Carbon Dioxide Level 23 mmol/L Anion Gap 6.0 mmol/L Blood Urea Nitrogen 7 mg/dl Creatinine 0.78 mg/dl Est Creatinine Clear Calc Drug Dose 126.8 ml/min Estimated GFR () 117.4 Estimated GFR (Non- 101.3 BUN/Creatinine Ratio 9.0 Random Glucose 104 mg/dl Calcium Level 8.0 mg/dl Magnesium Level 1.8 mg/dl Total Bilirubin 0.5 mg/dl Aspartate Amino Transf (AST/SGOT) 23 U/L Alanine Aminotransferase (ALT/SGPT) 29 U/L Alkaline Phosphatase 81 U/L Troponin I < 0.015 ng/ml Total Protein 6.9 gm/dl Albumin 3.1 gm/dl Globulin 3.8 gm/dl Albumin/Globulin Ratio 0.8 Lipase 115 U/L Assessment & Plan Acute cholecystitis with gallstones Present with RUQ abdominal pain associated with vomiting Gall bladder U/S on admission showed extensive cholelithiasis and equivocal calculus in the region of the left main hepatic duct MRCP done yesterday showed cholelithiasis and calculi present within the gallbladder neck/proximal cystic duct S/P day 1 Subtotal Laparoscopic Cholecystectomy performed today by Dr. Tomlin Continue pain control Diet advanced JOE drainage removed Clinically stable OK from surgical standpoint to discharge home ELEVATED WBC Possible reactive WBC trending down to normal On cefoxitin HX DEPRESSION Stable. DVT PROPHYLAXIS -SCD/ambulating CODE STATUS FULL CODE DISPOSITION Will discharge home today Consultants: SURGERY Current Inpatient Medications: Current Inpatient Medications Medications (Trade) Dose Ordered Sig/Nelia Route Start Time Stop Time Status Last Admin Dose Admin Acetaminophen (Tylenol Tab) 650 mg Q4H PRN PO 12/14/17 08:30 01/13/18 08:29 Polyethylene (Miralax Powder Packet) 17 gm DAILY PRN PO 12/14/17 08:30 01/13/18 08:29 Ondansetron HCl (Zofran Inj) 4 mg Q6H PRN IV 12/14/17 08:30 01/13/18 08:29 Miscellaneous (Iv Fluids Completed) 1 ea PRN PRN N/A 12/14/17 10:00 12/14/18 09:59 Oxycodone/ Acetaminophen (Percocet 5-325mg Tab) 1 tab Q4H PRN PO 12/15/17 17:00 2/15/18 16:59 12/16/17 13:04 1 TAB Oxycodone/ Acetaminophen (Percocet 5-325mg Tab) 2 tab Q4H PRN PO 12/15/17 17:00 12/29/17 16:59 Morphine Sulfate (MoRPHine SULFATE INJ) 4 mg Q2HWA PRN IV 12/16/17 02:00 12/28/17 08:44 Calcium Carbonate (Tums Chew Tab) 500 mg QID PRN PO 12/16/17 03:45 01/15/18 03:44
--- NOTE | 2017-12-17 17:52 | Discharge Summary ---
Discharge Summary Date of Service Dec 17, 2017. Discharge Summary Admission Date: Dec 14, 2017 at 08:24 Discharge Date: Dec 16, 2017 Discharge Disposition: Home Principal Diagnosis: Acute cholecystitis with gallstones Secondary Diagnoses/Problems: ELEVATED WBC HX DEPRESSION Procedures: S/P Subtotal Laparoscopic Cholecystectomy performed today by Dr. Tomlin [~ rep ct add3]] MRCP CLINICAL HISTORY: RUQ abd pain abnormal ultrasound. Equivocal left hepatic duct calculus COMPARISON STUDY: Ultrasound study dated 12/14/2017 FINDINGS: There are in numerable gallbladder calculi present. There is a calculus present within the gallbladder neck/proximal cystic duct. No intrahepatic calculi are visualized. There is no common bile duct dilatation. The common bile duct measures 3.7 mm. No common bile duct calculi are visualized. There is no pancreatic ductal dilatation. IMPRESSION: 1. Cholelithiasis 2. Calculi present within the gallbladder neck/proximal cystic duct 3. No common bile duct or intrahepatic biliary calculi are visualized 4. No evidence of common bile duct dilatation. Electronically signed by: Gerry Holm M.D. 12/14/2017 11:44 AM Dictated Date/Time: 12/14/2017 11:38 AM [~ rep ct add3]] BILIARY ULTRASOUND CLINICAL HISTORY: Epigastric pain COMPARISON STUDY: No previous studies for comparison. FINDINGS: The study was slightly difficult to technical standpoint due to the patient's large body habitus. The body of pancreas appear normal. The tail was nonvisualized. No focal hepatic masses are visualized. There are multiple gallstones. This includes a stone within the gallbladder neck. There is also an equivocal calculus in the region of the left main hepatic duct at the oliva hepatis level. There is no gallbladder wall thickening or pericholecystic fluid. There is no ductal dilatation. The common bile duct measures 5 mm. IMPRESSION: 1. Extensive cholelithiasis 2. Equivocal calculus in the region of the left main hepatic duct 3. No evidence of common bile duct dilatation Electronically signed by: Gerry Holm M.D. 12/14/2017 7:15 AM Dictated Date/Time: 12/14/2017 7:12 AM Consultations: SURGERY Medication Reconciliation New Medications: Oxycodone/Acetaminophen 5MG/325MG (Percocet 5MG/325MG) Tab 1 TABLET PO Q4H PRN for Pain, #18 TAB Admission Information HPI (per Admitting provider): Pt is 31 y/o F with PMH depression presents to ER with C/O RUQ pain and vomiting started last night around 0300. Woke up with sharp pain to RUQ and epigastric region with nausea and vomiting x 6 episodes brown/yellow color color emesis. Pt states ate fried chicken and irish fries at approx 2100 yesterday. No prior treatment to ER arrival. She states in past has had mild intermittent RUQ pain during middle of the night but usually only lasts minutes and able to fall back asleep. Unsure any relation with foods. Hx x 2 and tubal ligation, denies other abdominal surgeries. Denies ETOH use. Denies fever/chills, diaphoresis, hematemesis, diarrhea, constipation, melena, hematochezia, RENEE, dizziness, syncope, vision changes, neck pain, CP, SOB, palpitations, cough, extremity edema, rashes, urinary symptoms. FH mother with cholecystomy. In ER pt afebrile. WBC: 11.4. Normal LFT's. negative U/A. Gallbladder u/s: cholelithiasis, equivocal calculus in region L main hepatic duct. Pt was given 500ml bolus NSS, zofran, morphine total 8mg, cefoxitin. Physical Exam (per Admitting): General Appearance: no apparent distress (resting comfortably in bed, non ill appearing), + obese Head: normocephalic, atraumatic Eyes: normal inspection, sclerae normal ENT: hearing grossly normal, pharynx normal, + pertinent finding (mucous membranes moist) Neck: supple, trachea midline Respiratory/Chest: chest non-tender, lungs clear, normal breath sounds, no respiratory distress Cardiovascular: regular rate, rhythm, no murmur Abdomen/GI: normal bowel sounds, soft, + pertinent finding (+tenderness to palpation RUQ and epigastric, positive fink's sign, no rebound or guarding) Back: + pertinent finding (+right flank tenderness to palpation, ROM intact) Extremities/Musculoskelatal: normal inspection, normal capillary refill, no pedal edema, normal range of motion Neurologic/Psych: alert, normal mood/affect, oriented x 3 Skin: normal color, warm/dry Hospital Course Acute cholecystitis with gallstones Present with RUQ abdominal pain associated with vomiting Gall bladder U/S on admission showed extensive cholelithiasis and equivocal calculus in the region of the left main hepatic duct MRCP done yesterday showed cholelithiasis and calculi present within the gallbladder neck/proximal cystic duct S/P day 1 Subtotal Laparoscopic Cholecystectomy performed today by Dr. Tomlin Continue pain control Diet advanced JOE drainage removed Clinically stable OK from surgical standpoint to discharge home ELEVATED WBC Possible reactive WBC trending down to normal On cefoxitin HX DEPRESSION Stable. DVT PROPHYLAXIS -SCD/ambulating CODE STATUS FULL CODE DISPOSITION Will discharge home today Total time spent on discharge = 35 minutes This includes examination of the patient, discharge planning, medication reconciliation, and communication with other providers. Discharge Instructions Discharge Instructions Date of Service Dec 16, 2017. Admission Reason for Admission: Ruq Abdominal Pain, Cholelithiasis Discharge Discharge Diagnosis / Problem: same, cholecystitis (inflammation of gallbladder ) Discharge Goals Goal(s): Decrease discomfort, Improve function Activity Recommendations Activity Limitations: as noted below No heavy lifting over 20 pounds for 3 weeks No strenuous activity until cleared by surgeon No submerging incisions underwater for 2 weeks (no bathing, swimming, or hot tubs) No driving while taking narcotic pain medication or until you are pain free . Instructions / Follow-Up Instructions / Follow-Up you may shower in 2 days. Sponge bath and wash hair in meantime. Keep dressings clean and dry After showering, remove outer dressings. May need to replace dressing of drain site. Leave steri strips on incisions for 7 days and then remove. They may fall off on their own that is okay. Walking and light activity is encouraged You will be given narcotic pain medication as needed for moderate to severe pain. This medication may make you drowsy. You may take extra strength Tylenol/ Ibuprofen as needed for mild pain. Follow-up in surgical office in 2 weeks, please call office at [phone] to make an appointment Current Hospital Diet Patient's current hospital diet: Regular Diet Discharge Diet Recommended Diet: Regular Diet Procedures Procedures Performed: Subtotal Laparoscopic Cholecystectomy Pending Studies Studies pending at discharge: yes List of pending studies: gallbladder pathology will be reviewed at follow up visit Medical Emergencies . Who to Call and When: Medical Emergencies: If at any time you feel your situation is an emergency, please call 911 immediately. . Non-Emergent Contact Non-Emergency issues call your: Primary Care Provider, Surgeon Call Non-Emergent contact if: you have a fever, temperature is above 101, your pain is not controlled, your pain is worsening, your pain is unusual for you, wound has increased drainage, wound has increased redness, wound has increased pain . "Provider Documentation" section prepared by Ainsley Guy. . VTE Core Measure Inpt VTE Proph given/why not?: SCD's [place] Drug Monitoring Program Search Results: patient reviewed within database, no issues identified
== END 2017-12-16 16:20 | disposition home or self-care (01) ==
LOC: C.EDB 05:25 → C.MSN 08:24 → ENRESERV 08:37
PROVIDERS: ADMIT Internal Medicine; ATTEND Internal Medicine
DX: K80.10 Calculus of gallbladder with chronic cholecystitis without obstruction (principal); D72.829 Elevated white blood cell count, unspecified; F32.9 Major depressive disorder, single episode, unspecified; Z98.51 Tubal ligation status; F17.200 Nicotine dependence, unspecified, uncomplicated; E66.9 Obesity, unspecified; Z68.33 Body mass index [BMI] 33.0-33.9, adult; Z83.3 Family history of diabetes mellitus; Z82.3 Family history of stroke; Z82.49 Family history of ischemic heart disease and other diseases of the circulatory system

== ENCOUNTER 2018-03-02 11:23 | Emergency (ER) | payer SELFPAY ==
[~2018-03-02] VITALS: Ht 167.6 cm; Wt 110.3 kg
[~2018-03-02 11:23] MED LIST: OXYC-57 PO
[2018-03-02 12:00] VITALS: TEMP 36.9; Ht 167.6 cm; Wt 110.3 kg
--- NOTE | 2018-03-02 12:47 | DIAGNOSTIC IMAGING REPORT ---
CHEST 2 VIEWS ROUTINE CLINICAL HISTORY: SHORTNESS OF BREATH COMPARISON STUDY: 12/14/2017 FINDINGS: The cardiac and mediastinal contours are normal. There is no evidence of focal pulmonary consolidation. There is no evidence of failure. No pleural effusions are visualized.[ IMPRESSION: No active disease in the chest. Electronically signed by: Geryr Holm M.D. 03/02/2018 12:46 PM Dictated Date/Time: 03/02/2018 12:40 PM
[2018-03-02] MEDS ORDERED: ONDANSETRON INJ 2 MG/ML 2 ML VIAL IV STA (13:11)
[2018-03-02] MEDS ORDERED: ALBUT/IPRATROP 3MG/0.5MG NEB 3 ML VIAL INH STA (13:11)
[2018-03-02] MEDS ORDERED: SODIUM CHLORIDE 0.9% 1000ML 2,000 ML IV STA (13:11)
[2018-03-02] MEDS ORDERED: DEXAMETHASONE **PF** INJ 10 MG/ML VIAL IV ONE (13:15)
--- NOTE | 2018-03-02 13:34 | EMERGENCY ROOM VISIT NOTE ---
History Report prepared by Silva: Christopher Gee Under the Supervision of: Dr. Eladio España M.D. First contact with patient: 13:06 Chief Complaint: SORETHROAT Stated Complaint: THROAT HURTS, SWOLLEN History of Present Illness The patient is a 32 year old female who presents to the Emergency Room with complaints of a constant sore throat starting last night. The patient additionally notes that she has been having some chest pain for the past 3-4 days, and she just recently started vomiting and has the chills. She denies any abdominal pain or burning with urination. The patient states that she did not take any Tylenol or ibuprofen this morning. She has no history of asthma, and she states that she quit smoking in November. The patient states that she is not currently on any medications. Source of History: patient Onset: last night Position: throat Quality: other (sore) Timing: constant Associated Symptoms: + chills, + chest pain, + vomiting, No abdominal pain Review of Systems See HPI for pertinent positives and negatives. A total of ten systems were reviewed and were otherwise negative. Past Medical & Surgical Medical Problems: (1) Abdominal pain, RUQ (2) Bacterial conjunctivitis of left eye (3) Cholelithiasis (4) Otitis media (5) Pharyngitis (6) Sinusitis Surgical Problems: (1) H/O tubal ligation (2) History of Family History Diabetes mellitus FH: hyperlipidemia Hypertension Stroke Social History Smoking Status: Former Smoker Drug Use: none Marital Status: Housing Status: lives with family Current/Historical Medications Scheduled Ondasetron Odt (Zofran Odt), 4 MG SL Q6H Penicillin V Potassium (Veetids), 500 MG PO TID Scheduled PRN Ibuprofen Tab (Motrin), 800 MG PO Q8H PRN for Pain Allergies Coded Allergies: No Known Allergies (Unverified , 03/02/18) Physical Exam Vital Signs Date Time Temp Pulse Resp B/P (MAP) Pulse Ox O2 Delivery O2 Flow Rate FiO2 03/02/18 15:43 113 20 128/68 96 03/02/18 14:04 125 20 132/70 97 Room Air 03/02/18 12:00 36.9 124 20 134/72 99 Room Air Physical Exam GENERAL: Awake, alert, fatigued-appearing, in no distress HENT: Normocephalic, atraumatic. Mild injection in the the posterior oropharynx. No exudate. No tongue elevation or trismus. No pain with tracheal manipulation. EYES: Normal conjunctiva. Sclera non-icteric. NECK: Supple. No nuchal rigidity. FROM. No JVD. RESPIRATORY: Clear to auscultation. CARDIAC: Regular rate, normal rhythm. Extremities warm and well perfused. Pulses equal. ABDOMEN: Soft, non-distended. No tenderness to palpation. No rebound or guarding. No masses. RECTAL: Deferred. MUSCULOSKELETAL: Chest examination reveals no tenderness. The back is symmetrical on inspection without obvious abnormality. There is no CVA tenderness to palpation. No joint edema. LOWER EXTREMITIES: Calves are equal size bilaterally and non-tender. No edema. No discoloration. NEURO: Normal sensorium. No sensory or motor deficits noted. SKIN: No rash or jaundice noted. Medical Decision & Procedures ER Provider Diagnostic Interpretation: Radiology results as stated below per my review and radiologist interpretation: CHEST 2 VIEWS ROUTINE CLINICAL HISTORY: SHORTNESS OF BREATH COMPARISON STUDY: 12/14/2017 FINDINGS: The cardiac and mediastinal contours are normal. There is no evidence of focal pulmonary consolidation. There is no evidence of failure. No pleural effusions are visualized.[ IMPRESSION: No active disease in the chest. Electronically signed by: Gerry Holm M.D. 03/02/2018 12:46 PM Dictated Date/Time: 03/02/2018 12:40 PM Laboratory Results 03/02/18 13:49 Red Blood Count 4.87, Mean Corpuscular Volume 84.6, Mean Corpuscular Hemoglobin 29.4, Mean Corpuscular Hemoglobin Concent 34.7, Mean Platelet Volume 9.6, Neutrophils (%) (Auto) 89.5, Lymphocytes (%) (Auto) 5.0, Monocytes (%) (Auto) 5.0, Eosinophils (%) (Auto) 0.1, Basophils (%) (Auto) 0.1, Neutrophils # (Auto) 12.79, Lymphocytes # (Auto) 0.72, Monocytes # (Auto) 0.72, Eosinophils # (Auto) 0.02, Basophils # (Auto) 0.02 03/02/18 13:49 Test 03/02/18 13:49 03/02/18 14:13 03/02/18 14:19 White Blood Count 14.31 K/uL (4.8-10.8) Red Blood Count 4.87 M/uL (4.2-5.4) Hemoglobin 14.3 g/dL (12.0-16.0) Hematocrit 41.2 % (37-47) Mean Corpuscular Volume 84.6 fL (80-100) Mean Corpuscular Hemoglobin 29.4 pg (25-34) Mean Corpuscular Hemoglobin Concent 34.7 g/dl (32-36) Platelet Count 317 K/uL (130-400) Mean Platelet Volume 9.6 fL (7.4-10.4) Neutrophils (%) (Auto) 89.5 % Lymphocytes (%) (Auto) 5.0 % Monocytes (%) (Auto) 5.0 % Eosinophils (%) (Auto) 0.1 % Basophils (%) (Auto) 0.1 % Neutrophils # (Auto) 12.79 K/uL (1.4-6.5) Lymphocytes # (Auto) 0.72 K/uL (1.2-3.4) Monocytes # (Auto) 0.72 K/uL (0.11-0.59) Eosinophils # (Auto) 0.02 K/uL (0-0.5) Basophils # (Auto) 0.02 K/uL (0-0.2) RDW Standard Deviation 39.6 fL (36.4-46.3) RDW Coefficient of Variation 13.0 % (11.5-14.5) Immature Granulocyte % (Auto) 0.3 % Immature Granulocyte # (Auto) 0.04 K/uL (0.00-0.02) Anion Gap 4.0 mmol/L (3-11) Est Creatinine Clear Calc Drug Dose 115.4 ml/min Estimated GFR () 100.8 Estimated GFR (Non- 86.9 BUN/Creatinine Ratio 11.1 (10-20) Calcium Level 9.3 mg/dl (8.5-10.1) Total Bilirubin 0.7 mg/dl (0.2-1) Direct Bilirubin 0.1 mg/dl (0-0.2) Aspartate Amino Transf (AST/SGOT) 17 U/L (15-37) Alanine Aminotransferase (ALT/SGPT) 29 U/L (12-78) Alkaline Phosphatase 122 U/L (45-117) Total Protein 8.3 gm/dl (6.4-8.2) Albumin 3.6 gm/dl (3.4-5.0) Lipase 111 U/L (73-393) Human Chorionic Gonadotropin, Qual NEG (NEG) Influenza Type A Antigen Neg for Influ A (NEG) Influenza Type B Antigen Neg for Influ B (NEG) Urine Color YELLOW Urine Appearance CLEAR (CLEAR) Urine pH 8.0 (4.5-7.5) Urine Specific Kinsey 1.013 (1.000-1.030) Urine Protein NEG (NEG) Urine Glucose (UA) NEG (NEG) Urine Ketones NEG (NEG) Urine Occult Blood NEG (NEG) Urine Nitrite NEG (NEG) Urine Bilirubin NEG (NEG) Urine Urobilinogen NEG (NEG) Urine Leukocyte Esterase NEG (NEG) Date/Time Source Procedure Growth Status 03/02/18 12:14 Throat Group A Streptococcus Screen - Final SPECIMEN POSITIVE FOR GROUP A BETA ST... Complete 03/02/18 12:14 Throat Group A Streptococcus Screen (SAMUEL) - Final Complete Laboratory results reviewed by me Medications Administered Medications (Trade) Dose Ordered Sig/Nelia Route Start Time Stop Time Status Last Admin Dose Admin Sodium Chloride 2,000 ml @ 999 mls/hr Q2H1M STAT IV 03/02/18 13:11 03/02/18 15:11 DC 03/02/18 14:14 999 MLS/HR Dexamethasone Sodium Phosphate (Dexamethasone Inj Pf) 10 mg NOW ONCE IV 03/02/18 13:15 03/02/18 13:16 DC 03/02/18 14:14 10 MG Ondansetron HCl (Zofran Inj) 4 mg NOW STAT IV 03/02/18 13:11 03/02/18 13:14 DC 03/02/18 14:14 4 MG Albuterol/ Ipratropium (Duoneb) 3 ml NOW STAT INH 03/02/18 13:11 03/02/18 13:15 DC 03/02/18 14:14 3 ML Penicillin V Potassium (Veetids Tab) 500 mg NOW STAT PO 03/02/18 15:12 03/02/18 15:14 DC 03/02/18 15:42 500 MG Ketorolac Tromethamine (Toradol Inj) 15 mg NOW STAT IV 03/02/18 15:12 4/19/18 15:14 DC 03/02/18 15:42 15 MG Albuterol (Ventolin Hfa Inhaler) 2 puffs NOW STAT INH 03/02/18 15:19 03/02/18 15:20 DC 03/02/18 15:42 2 PUFFS ED Course 1306: The patient was evaluated in room A4. A complete history and physical exam was performed. 1528: I reevaluated the patient. Discussed results and discharge instructions: She verbalized understanding and agreement. The patient is ready for discharge. Medical Decision I reviewed the patient's past medical history, medications, and the nursing notes as described above. Differential diagnosis: Etiologies such as viral syndrome, tonsillitis, streptococcal pharyngitis, mononucleosis, peritonsillar abscess, retropharyngeal abscess, otitis, pneumonia , influenza, as well as others were entertained. The patient is a 32-year-old woman who presents emergency department with sore throat, cough congestion, feverishness and chills per hpi. On arrival the patient is fatigued appearing but no acute distress, afebrile stable vital signs. Rapid strep positive. WBC 14 consistent with the patient's strep pharyngitis. Labs otherwise unremarkable. Chest x-ray negative. Patient feeling improved after IV fluids, Toradol, dexamethasone, albuterol. Will treat patient strep with penicillin. Findings and plan for follow-up reviewed with patient. Patient agreeable and d/c'd per discharge instructions. Medication Reconcilliation Current Medication List: was personally reviewed by me Blood Pressure Screening Patient's blood pressure: Elevated blood pressure Blood pressure disposition: Elevated BP felt to be situational Impression Primary Impression: Strep pharyngitis Scribe Attestation The scribe's documentation has been prepared under my direction and personally reviewed by me in its entirety. I confirm that the note above accurately reflects all work, treatment, procedures, and medical decision making performed by me. Departure Information Dispostion Home / Self-Care Prescriptions Ondasetron Odt (ZOFRAN ODT) 4 Mg Tab 4 MG SL Q6H for Nausea, #10 TAB Prov: Eladio España M.D. 03/02/18 Ibuprofen Tab (MOTRIN) 800 Mg Tab 800 MG PO Q8H Y for Pain for 10 Days, #30 TAB Prov: Eladio España M.D. 03/02/18 Penicillin V Potassium (Veetids) 500 Mg Tab 500 MG PO TID for 10 Days, #30 TAB Prov: Eladio España M.D. 03/02/18 Referrals No Doctor, Assigned (PCP) Forms HOME CARE DOCUMENTATION FORM, IMPORTANT VISIT INFORMATION Patient Instructions ED Strep Pharyngitis Conf, My [facility] Additional Instructions Please follow up with and establish a primary care physician in the next 1-3 days for re-evaluation. You were found to have a strep pharyngitis. Otherwise, your exam, chest xray, and lab results did not show signs of an emergent condition at this time. Acetaminophen or ibuprofen for pain and fevers as needed. Penicillin as directed. Saline nasal spray and mucinex to help thin a clear mucus as needed. Albuterol every 4 hours for the next 48 hours and then as needed thereafter. Zofran as needed for nausea. Drink plenty of fluids to ensure hydration. Return to the emergency department for worsening symptoms as described in the accompanying instructions.
[2018-03-02 14:09] LABS: BASO % 0.1 %; BASO ABS # 0.02 K/uL (0-0.2); EOS % 0.1 %; EOS ABS # 0.02 K/uL (0-0.5); HEMATOCRIT 41.2 % (37-47); HEMOGLOBIN 14.3 g/dL (12.0-16.0); IG# 0.04 K/uL (0.00-0.02); LYMPH ABS # 0.72 K/uL (1.2-3.4); MEAN CELL VOLUME 84.6 fL (80-100); MEAN CORPUSCULAR HEMOGLOBIN 29.4 pg (25-34); MEAN CORPUSCULAR HGB CONC 34.7 g/dl (32-36); MEAN PLATELET VOLUME 9.6 fL (7.4-10.4); MONO ABS # 0.72 K/uL (0.11-0.59); NEUT % 89.5 %; NEUT ABS # 12.79 K/uL (1.4-6.5); PLATELET COUNT 317 K/uL (130-400); RED CELL DISTRIBUTION WIDTH SD 39.6 fL (36.4-46.3); WHITE BLOOD COUNT 14.31 K/uL (4.8-10.8)
[2018-03-02 14:25] LABS: ALBUMIN 3.6 gm/dl (3.4-5.0); CALCIUM 9.3 mg/dl (8.5-10.1); CREATININE 0.88 mg/dl (0.60-1.20)
[2018-03-02 14:28] LABS: TOTAL PROTEIN 8.3 gm/dl (6.4-8.2)
[2018-03-02 15:03] LABS: INFLUENZA B ANTIGEN Neg for Influ B (NEG)
[2018-03-02] MEDS ORDERED: PENICILLIN V POTASSIUM 250 MG TAB PO STA (15:12)
[2018-03-02] MEDS ORDERED: KETOROLAC TROMETHAMINE 30 MG/ML VIAL IV STA (15:12)
[2018-03-02] MEDS ORDERED: ONDA4TAB10 SL (15:17)
[2018-03-02] MEDS ORDERED: IBUP-1451 PO (15:17)
[2018-03-02] MEDS ORDERED: PENI-82 PO (15:17)
[2018-03-02] MEDS ORDERED: ALBUTEROL HFA 8 GM INHALER INH STA (15:19)
[2018-03-02 15:43] VITALS: BP 128/68; PULSE 113; O2SAT 96
== END 2018-03-02 15:45 | disposition home or self-care (01) ==
LOC: C.EDB 11:24 → C.EDA 15:45
DX: J02.0 Streptococcal pharyngitis (principal); Z87.891 Personal history of nicotine dependence; Z98.51 Tubal ligation status

== ENCOUNTER 2018-12-05 10:44 | Observation (INO) ==
[2018-12-05] MEDS ORDERED: KETOROLAC TROMETHAMINE 15 MG/ML VIAL IV STA (11:01)
[2018-12-05] MEDS ORDERED: ONDANSETRON INJ 2 MG/ML 2 ML VIAL IV STA (11:01)
[2018-12-05] MEDS ORDERED: SODIUM CHLORIDE 0.9% 1000ML 1,000 ML IV SCH (11:15)
[2018-12-05 11:29] LABS: Appearance Urine Clear (Clear); Bilirubin Urine Negative (Negative); Color Urine Yellow; Glucose Urine UA Negative (Negative); Ketones Urine Negative (Negative); Leukocyte Esterase Urine Negative (Negative); Nitrite Urine Negative (Negative); Protein Urine Negative (Negative); Specific Gravity Urine 1.022 (1.000-1.030); Urobilinogen Urine Negative (Negative)
[2018-12-05] MEDS: MoRPHine SULFATE 4 MG/ML 1 ML CARP\\VIAL IV PRN ×2 (11:29→12:19)
--- NOTE | 2018-12-05 11:39 | Emergency Department Note ---
Entered by Tatiana Carver acting as a scribe for Abe Medina MD History of Present Illness General Chief complaint: Chest Pain Stated complaint: CHEST PAIN, TROUBLE BREATHING Time Seen by Provider: 12/05/18 10:57 Source: patient History of Present Illness Provider complaint: chest pain Onset (ago): hour(s) 6 Location: chest Maximum Pain Intensity: 10 Quality: + other (pain) Exacerbated By: + other (breathing, laying flat) Associated symptoms: + nausea/vomiting (nausea, no vomiting ) and + shortness of breath The patient is a 32 year old female who presents to the Emergency Room with complaints of chest pain beginning about 6 hours prior to arrival. She states that it is difficult to breath and states that she feels like "she is being stabbed in the back." She rates her pain at a 10/10 and states that breathing and laying flat exacerbate her pain. She states that she was not doing anything in particular when her pain began. She reports having nausea, but denies vomiting. The patient reports a family history of heart disease. She denies a personal history of heart and lung problems. The patient states that she quit smoking for 10 months but states that she started again in October. The patient denies any recent travel and denies a history of blood clots. The patient states that she had part of her gallbladder removed in December of last year. She also reports a history of a tubal ligation. The patient states that she is not on any blood thinners. Home Medications Home Medications Medication Instructions Recorded Confirmed Type No Known Home Medications 12/05/18 12/05/18 History Allergies Allergy/AdvReac Type Severity Reaction Status Date / Time No Known Allergies Allergy Unverified 12/05/18 11:39 Past Med/Surg History Medical History Tubal ligation status (Resolved) GERD (gastroesophageal reflux disease) Surgical History S/P section S/P laparoscopic cholecystectomy S/P myringotomy with insertion of tube Family History Other Heart disease Social History Current Living Situation: Spouse Other Information That Helps Us Care for You: No Feels Safe at Home: Yes Safety Concerns: Feels Safe At This Time Smoking Status: Current every day smoker Tobacco Type: cigarettes Cigarettes per Day: 20 Hx Alcohol Use: No Hx Substance Use: No Beliefs That Will Affect Care: None Preferred Language: [place] Communication Ability: Effective Review of Systems See HPI for pertinent positives & negatives. and A total of 10 systems reviewed and were otherwise negative Physical Exam Vital Signs Vital Signs - 24 hr 12/05/18 10:51 12/05/18 11:34 12/05/18 11:35 Temperature 36.4 C L Temperature Source Oral Sepsis Recent Fever Within 48 Hours No Sepsis New/Unexplained Change in Mental Status No Sepsis Action Taken by Nursing No Action Required Pulse Rate 80 68 Pulse Rate [Finger] 61 Pulse Rhythm [Finger] Pulse Strength [Finger] Respiratory Rate 28 H 20 18 Respiratory Effort / Characteristics Non-Labored Spontaneous Respiratory Depth Normal Blood Pressure 145/89 H Blood Pressure [Left Arm] 130/75 Blood Pressure Mean 107 Blood Pressure Mean [Left Arm] 93 Blood Pressure Position [Left Arm] Pulse Oximetry 100 98 96 Oxygen Delivery Method Room Air Room Air Room Air 12/05/18 12:24 12/05/18 14:00 12/05/18 14:27 Temperature Temperature Source Sepsis Recent Fever Within 48 Hours Sepsis New/Unexplained Change in Mental Status Sepsis Action Taken by Nursing Pulse Rate Pulse Rate [Finger] 67 68 Pulse Rhythm [Finger] Pulse Strength [Finger] Respiratory Rate 18 17 Respiratory Effort / Characteristics Non-Labored Respiratory Depth Normal Blood Pressure Blood Pressure [Left Arm] 112/62 110/62 Blood Pressure Mean Blood Pressure Mean [Left Arm] 78 78 Blood Pressure Position [Left Arm] Pulse Oximetry 98 100 Oxygen Delivery Method Room Air Room Air Room Air 12/05/18 14:47 12/05/18 15:14 Temperature 37 C Temperature Source Oral Sepsis Recent Fever Within 48 Hours Sepsis New/Unexplained Change in Mental Status Sepsis Action Taken by Nursing Pulse Rate Pulse Rate [Finger] 67 78 Pulse Rhythm [Finger] Regular Pulse Strength [Finger] Normal Respiratory Rate 17 18 Respiratory Effort / Characteristics Non-Labored Spontaneous Respiratory Depth Normal Normal Blood Pressure Blood Pressure [Left Arm] 111/65 121/79 Blood Pressure Mean Blood Pressure Mean [Left Arm] 80 93 Blood Pressure Position [Left Arm] Semi-fowlers Pulse Oximetry 99 99 Oxygen Delivery Method Room Air Room Air GENERAL: Patient is in mild distress and hyperventilating. HEENT: No acute trauma, normocephalic atraumatic, mucous membranes moist, no nasal congestion, no scleral icterus. NECK: No stridor, no adenopathy, no meningismus, trachea is midline. LUNGS: Clear to auscultation bilaterally, no wheeze, no rhonchi, breath sounds equal. Increased respiratory rate. HEART: Without murmurs gallops or rubs, regular rate and rhythm. ABDOMEN: Soft, significantly tender in the epigastrium and upper quadrants, bowel sounds positive, no hernias, no peritonitis. EXTREMITIES: No cyanosis or edema, full range of motion of all the joints without pain or difficulty, no signs for acute trauma. NEUROLOGIC: Oriented x 3, no acute motor or sensory deficits, no focal weakness. SKIN: No rash, no jaundice, no diaphoresis. Course 1058: Past medical records reviewed. The patient was evaluated in room B3B, and a complete history and physical examination were performed. 1253: I checked on the patient. Her pain is down to a 5. 1306: I discussed the patient's case with Dr. Velazco-General Surgery who said that he will come see the patient. 1415: I updated the patient who verbalized agreement and understanding of the treatment plan. 1423: Dr. Velazco said that he will take the patient to the OR. Consultations Consultation #1: Dr. Velazco-General Surgery Time: 13:06 Administered Medications Cefazolin Sodium (Ancef 2000mg) 2,000 mg in 15 mls @ 3.75 mls/min IV ONCE DEMARIO; Protocol Stop: 12/06/18 16:44 Last Admin: 12/05/18 15:45 Dose: 3.75 mls/min Ioversol (Optiray 320 100ml) 94 ml IV ONCE PRN PRN Reason: Interaction Checking Stop: 12/09/18 12:07 Last Admin: 12/05/18 12:08 Dose: 94 ml Morphine Sulfate (Morphine Sulfate) 4 mg IV Q15M PRN PRN Reason: Pain Stop: 12/19/18 11:00 Last Admin: 12/05/18 12:19 Dose: 4 mg Admin: 12/05/18 11:29 Dose: 4 mg Discontinued Medications Sodium Chloride (Nss 1000ml) 1,000 mls @ 999 mls/hr IV .Q1H1M DEMARIO Stop: 12/05/18 12:15 Last Infusion: 12/05/18 12:30 Dose: 0 mls/hr Admin: 12/05/18 11:29 Dose: 999 mls/hr Ketorolac Tromethamine (Toradol) 15 mg IV NOW STA Stop: 12/05/18 11:02 Last Admin: 12/05/18 11:29 Dose: 15 mg Ondansetron HCl (Zofran) 4 mg IV NOW STA Stop: 12/05/18 11:02 Last Admin: 12/05/18 11:29 Dose: 4 mg Scopolamine (Transderm-Scop) 1.5 mg TD Q72H [facility] Stop: 01/04/19 15:29 Last Admin: 12/05/18 15:10 Dose: 1.5 mg Medical Decision Making Differential Diagnosis The patient is a 32 year old female who presents to the ED with chest pain. Differential diagnosis includes acute cholecystitis, biliary colic, pancreatitis , bowel rupture, ulcer or gastritis, PE, aortic dissection, OR, pneumonia, and musculoskeletal pain. Medical Records Attestation: I reviewed the patient's medical records. Home Medications Current Medication List: was personally reviewed by me Laboratory Data Attestation: I reviewed the patient's lab results. Result diagrams: 12/05/18 11:25 12/05/18 11:25 Lab Results 12/05/18 12/05/18 12/05/18 Range/Units 11:10 11:25 11:25 WBC 10.43 (4.8-10.8) K/uL RBC 4.85 (4.2-5.4) M/uL Hgb 14.1 (12.0-16.0) g/dL Hct 41.0 (37-47) % MCV 84.5 (80-100) fL MCH 29.1 (25-34) pg MCHC 34.4 (32-36) g/dL RDW Std Deviation 41.5 (36.4-46.3) fL RDW Coeff of Trae 13.5 (11.5-14.5) % Plt Count 308 (130-400) K/uL MPV 9.5 (7.4-10.4) fL Immature Gran % (Auto) 0.3 % Neut % (Auto) 73.6 % Lymph % (Auto) 19.5 % [place] % (Auto) 5.2 % Eos % (Auto) 1.2 % Baso % (Auto) 0.2 % Immature Gran # (Auto) 0.03 H (0.00-0.02) K/uL Neut # (Auto) 7.69 H (1.4-6.5) K/uL Lymph # (Auto) 2.03 (1.2-3.4) K/uL [place] # (Auto) 0.54 (0.11-0.59) K/uL Eos # (Auto) 0.12 (0-0.5) K/uL Baso # (Auto) 0.02 (0-0.2) K/uL Sodium 134 L (136-145) mmol/L Potassium 3.9 (3.5-5.1) mmol/L Chloride 109 H (98-107) mmol/L Carbon Dioxide 21 (21-32) mmol/L Anion Gap 4.0 (3-11) BUN 12 (7-18) mg/dl Creatinine 0.79 (0.6-1.2) mg/dl Est Cr Clr Drug Dosing 131.8 ml/min Est GFR ( Amer) 114.8 Est GFR (Non-Af Amer) 99.1 BUN/Creatinine Ratio 14.9 (10-20) Glucose 113 H (70-99) mg/dl Calcium 8.9 (8.5-10.1) mg/dl Total Bilirubin 0.2 (0.2-1) mg/dl AST 16 (15-37) U/L ALT 31 (12-78) U/L Alkaline Phosphatase 107 (45-117) U/L Troponin I < 0.015 (0-0.045) ng/ml Total Protein 7.7 (6.4-8.2) gm/dl Albumin 3.4 (3.4-5.0) gm/dl Globulin 4.3 H (2.5-4.0) gm/dl Albumin/Globulin Ratio 0.8 L (0.9-2) Lipase 148 (73-393) U/L Urine Color Yellow Urine Appearance Clear (Clear) Urine pH 7.0 (4.5-7.5) Ur Specific [place] 1.022 (1.000-1.030) Urine Protein Negative (Negative) Urine Glucose (UA) Negative (Negative) Urine Ketones Negative (Negative) Urine Blood Negative (Negative) Urine Nitrite Negative (Negative) Urine Bilirubin Negative (Negative) Urine Urobilinogen Negative (Negative) Ur Leukocyte Esterase Negative (Negative) Imaging Data Radiologist's Impression: Radiology results as stated below per my review and the radiologist's interpretation: XR chest 1V portable CLINICAL HISTORY: 32 years-old Female presenting with chest pain. TECHNIQUE: Portable upright AP view of the chest was obtained. COMPARISON: 12/14/2017. FINDINGS: Cardiac silhouette top normal in size. No focal opacity. No large effusion or pneumothorax. Osseous structures normal. Upper abdomen normal. IMPRESSION: 1. No acute cardiopulmonary disease. Electronically signed by: Ronny Cannon M.D. 12/05/2018 12:24 PM [address]OMEN AND PELVIS CT WITH IV CONTRAST CT DOSE: 1543.31 mGy.cm HISTORY: Acute epigastric abdominal pain epig pain, poss pancreatitis TECHNIQUE: Multiaxial CT images of the abdomen and pelvis were performed following the use of intravenous contrast. A dose lowering technique was utilized adhering to the principles of ALARA. COMPARISON STUDY: MRCP 12/14/2017 FINDINGS: Imaged lung bases appear generally clear. No pneumatosis or pneumoperitoneum. Imaged inferior cardiac chambers appear unremarkable. Postoperative changes from prior partial cholecystectomy. Cholelithiasis noted within the remnant of the gallbladder. No choledocholithiasis or intrahepatic biliary ductal dilation. The liver, spleen and adrenal glands are within normal limits. No pancreatic ductal dilation. No inflammatory stranding about the pancreas to suggest acute pancreatitis. There is no subphrenic ovoid mass which is predominantly fatty attenuating involving the superior and posterior aspects of the superior pole left kidney, 4.0 x 7.2 x 6.4 cm in AP, transverse and craniocaudal dimensions. Vessels are noted coursing centrally into this lesion. No evidence of associated hemorrhage. Kidneys are otherwise unremarkable. No renal calculi, ureteral calculi or obstructive uropathy. Bladder is partially decompressed. Uterus and adnexa are unremarkable. Follicular changes of the ovaries. Aorta and IVC are unremarkable. No adenopathy. Mild wall thickening noted about the distal esophagus. No bowel obstruction or focal bowel wall thickening. Mild colonic diverticulosis without acute diverticulitis. Terminal ileum and appendix appear unremarkable. No ascites or mesenteric inflammatory changes. Soft tissues appear to be within normal limits. Bones appear to be intact. Transitional lumbosacral anatomy. IMPRESSION: 1. No bowel obstruction or focal bowel wall thickening. Normal appendix. 2. Cholelithiasis with postoperative changes from prior partial cholecystectomy. 3. 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 Note that at this large size, the lesion is at high risk for spontaneous hemorrhage. 4. Unremarkable CT appearance of the pancreas. Electronically signed by: Brooks Mccoy M.D. 12/05/2018 12:21 PM ECG Data Attestation: I personally reviewed and interpreted this ECG as follows: Indication: chest pain Rate (beats per minute): 59 Rhythm: sinus bradycardia (with some sinus arrhythmia) Findings: no PVC and no ST elevation Blood Pressure Blood Pressure Findings: Normal blood pressure MDM Narrative There is no leukocytosis or concerning anemia. No significant electrolyte abnormality, kidney failure, hepatitis or pancreatitis. Urinalysis does not show infection or hematuria. Chest film does not show free air, pneumonia or mediastinal widening. EKG shows a sinus rhythm, no acute ischemia. Cardiac enzyme testing x1 is not consistent with acute cardiac injury. Abdominal and pelvis CT shows gallstones, no evidence for acute cholecystitis or for acute pancreatitis. There was no bowel obstruction or free air. Patient received IV saline, IV Zofran, IV Toradol and IV morphine. 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 I suspect the patient has biliary colic. I did discuss her case with surgery. The patient was evaluated here in the ED by surgery. After some deliberation, the patient has decided to have her gallbladder completely removed. She is soon to be taken to the OR. Case management has been involved, the patient is aware of all her findings. Impression & Plan Biliary colic, Gallstones Discharge Plan Visit Data *Final* Discharge Date/Time: 12/05/18 14:58 Chief Complaint: Chest Pain Stated Complaint: CHEST PAIN, TROUBLE BREATHING ED Provider: Abe Medina Discharge Problem: Biliary colic, Gallstones Patient Disposition: Still a Patient Discharge Instructions Interventions: ED Discharge Assessment Last Done: 12/05/18 14:58 The scribe's documentation has been prepared under my direction and personally reviewed by me in its entirety. I confirm that the note above accurately reflects all work, treatment, procedures, and medical decision making performed by me.
[2018-12-05 11:40] LABS: Basophils # (auto) 0.02 K/uL (0-0.2); Basophils % (auto) 0.2 %; Eosinophils # (auto) 0.12 K/uL (0-0.5); Eosinophils % (auto) 1.2 %; Hemoglobin 14.1 g/dL (12.0-16.0); Immature Granulocytes # (auto) 0.03 K/uL (0.00-0.02); Immature Granulocytes % (auto) 0.3 %; Lymphocytes # (auto) 2.03 K/uL (1.2-3.4); Lymphocytes % (auto) 19.5 %; Mean Corpuscular Hgb Conc 34.4 g/dL (32-36); Mean Corpuscular Volume 84.5 fL (80-100); Mean Platelet Volume 9.5 fL (7.4-10.4); Monocytes # (auto) 0.54 K/uL (0.11-0.59); Monocytes % (auto) 5.2 %; Neutrophils # (auto) 7.69 K/uL (1.4-6.5); Neutrophils % (auto) 73.6 %; Platelet Count 308 K/uL (130-400); RDW Coefficient of Variation 13.5 % (11.5-14.5); RDW Standard Deviation 41.5 fL (36.4-46.3); Red Blood Count 4.85 M/uL (4.2-5.4); White Blood Count 10.43 K/uL (4.8-10.8)
[2018-12-05 11:59] LABS: Alanine Aminotransferase 31 U/L (12-78); Albumin Level 3.4 gm/dl (3.4-5.0); Aspartate Aminotransferase 16 U/L (15-37); BUN Creatinine Ratio 14.9 (10-20); Blood Urea Nitrogen 12 mg/dl (7-18); Calcium 8.9 mg/dl (8.5-10.1); Carbon Dioxide 21 mmol/L (21-32); Chloride 109 mmol/L (98-107); Creatinine Clr Calc Pharmacy 131.8 ml/min; Est GFR (African American) 114.8; Est GFR (Non-African American) 99.1; Glucose 113 mg/dl (70-99); Potassium 3.9 mmol/L (3.5-5.1); Sodium 134 mmol/L (136-145)
[2018-12-05 12:04] LABS: Albumin Globulin Ratio 0.8 (0.9-2); Alkaline Phosphatase 107 U/L (45-117); Bilirubin,Total 0.2 mg/dl (0.2-1); Globulin 4.3 gm/dl (2.5-4.0); Total Protein 7.7 gm/dl (6.4-8.2); Troponin I < 0.015 ng/ml (0-0.045)
[2018-12-05] MEDS ORDERED: IOVERSOL 100ml IV PRN (12:08)
--- NOTE | 2018-12-05 12:23 | CT Scan Report ---
ABDOMEN AND PELVIS CT WITH IV CONTRAST CT DOSE: 1543.31 mGy.cm HISTORY: Acute epigastric abdominal pain epig pain, poss pancreatitis TECHNIQUE: Multiaxial CT images of the abdomen and pelvis were performed following the use of intrave nous contrast. A dose lowering technique was utilized adhering to the principles of ALARA. COMPARISON STUDY: MRCP 12/14/2017 FINDINGS: Imaged lung bases appear generally clear. No pneumatosis or pneumoperitoneum. Imaged inferior cardiac chambers appear unremarkable. Postoperative changes from prior partial cholecystectomy. Cholelithiasis noted within the remnant of the gallbladder. No choledocholithiasis or intrahepatic biliary ductal dilation. The liver, spleen an d adrenal glands are within normal limits. No pancreatic ductal dilation. No inflammatory stranding a bout the pancreas to suggest acute pancreatitis. There is no subphrenic ovoid mass which is predominantly fatty attenuating involving the superior and posterior aspects of the superior pole left kidney, 4.0 x 7.2 x 6.4 cm in AP, transverse and cranioc audal dimensions. Vessels are noted coursing centrally into this lesion. No evidence of associated he morrhage. Kidneys are otherwise unremarkable. No renal calculi, ureteral calculi or obstructive uropa thy. Bladder is partially decompressed. Uterus and adnexa are unremarkable. Follicular changes of the ovaries. Aorta and IVC are unremarkable. No adenopathy. Mild wall thickening noted about the distal esophagus. No bowel obstruction or focal bowel wall thick ening. Mild colonic diverticulosis without acute diverticulitis. Terminal ileum and appendix appear u nremarkable. No ascites or mesenteric inflammatory changes. Soft tissues appear to be within normal l imits. Bones appear to be intact. Transitional lumbosacral anatomy. IMPRESSION: 1. No bowel obstruction or focal bowel wall thickening. Normal appendix. 2. Cholelithiasis with postoperative changes from prior partial cholecystectomy. 3. 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 Note that at this large size, the lesion is at hi gh risk for spontaneous hemorrhage. 4. Unremarkable CT appearance of the pancreas. Electronically signed by: Brooks Mccoy M.D. 12/05/2018 12:21 PM
--- NOTE | 2018-12-05 12:26 | XRay Report ---
XR chest 1V portable CLINICAL HISTORY: 32 years-old Female presenting with chest pain. TECHNIQUE: Portable upright AP view of the chest was obtained. COMPARISON: 12/14/2017. FINDINGS: Cardiac silhouette top normal in size. No focal opacity. No large effusion or pneumothorax. Osseous s tructures normal. Upper abdomen normal. IMPRESSION: 1. No acute cardiopulmonary disease. Electronically signed by: Ronny Cannon M.D. 12/05/2018 12:24 PM
--- NOTE | 2018-12-05 14:34 | History & Physical Report ---
Date of Service December 05, 2018 Assessment & Plan (1) Cholelithiasis with chronic cholecystitis: 32-year-old obese female status post subtotal cholecystectomy 1 year ago now with remnant cholelithiasis, biliary colic, and likely chronic cholecystitis. We discussed her options to include discharged home with outpatient follow-up versus cholecystectomy, after discussion with her the patient elects for cholecystectomy as she still has some pain even after morphine. Plan for laparoscopic cholecystectomy, possible cholangiogram, possible open cholecystectomy Risks of the procedure were discussed to include but are not limited to bleeding , infection, conversion to open, damage to surrounding structures including common bile duct, retained stone, bile leak, need for future more extensive surgeries, and the risk of anesthesia Antibiotic preop The diagnosis, details the procedure and recovery, and plan of care discussed the patient, all questions were answered, the patient expressed understanding agrees the plan of care as stated. Present on Admission?: Yes History of Present Illness Primary Care Provider: NO PCP 32-year-old female presented to the emergency department with abdominal pain. She underwent a laparoscopic subtotal cholecystectomy 1 year ago for severe acute cholecystitis. She did well after the surgery, however over the past few months she has been having intermittent epigastric and right upper quadrant pain that radiates to her chest and back. She notes that this is commonly associated with fatty meals. She ate sausage yesterday and had some reflux, and then developed the same pain. She notes that this pain is the same as it was when she presented for cholecystitis last year. Currently her pain is improved with morphine but still present. She denies any jaundice or acholic stools. Allergies Allergy/AdvReac Type Severity Reaction Status Date / Time No Known Allergies Allergy Unverified 12/05/18 11:39 Home Medications Home Medications Medication Instructions Recorded Confirmed Type No Known Home Medications 12/05/18 12/05/18 History Past Med/Surg History Medical History Tubal ligation status (Resolved) Family History Other Heart disease Social History Feels Safe at Home: Yes Smoking Status: Current every day smoker Review of Systems All systems reviewed & are unremarkable except as noted in HPI & below Physical Exam 2 Vital Signs (Past 24 Hours): Last Vital Signs Temp 36.4 C L 12/05/18 10:51 Pulse 68 12/05/18 14:00 Resp 17 12/05/18 14:00 BP 110/62 12/05/18 14:00 Pulse Ox 100 12/05/18 14:00 Constitutional: WD/WN, vitals as above + acute distress (Moderate) and + obese Eyes: PERRL, conjunctivae normal, anicteric sclerae ENMT: external ear and nose normal, oropharynx normal Neck: trachea midline, no thyromegaly Respiratory: normal respiratory effort, lungs clear to auscultation Cardiovascular: RRR, no murmur, no edema Gastrointestinal (Abdomen): Percussion/Palpation: + abdomen tender (Tender to palpation in epigastrium and right upper quadrant) and abdomen soft Port site incisions well-healed, no evidence of hernia Musculoskeletal: no cyanosis or clubbing, extremities motor strength 5/5 Skin: no rashes, warm and dry Neurologic: PERRL, EOMI, accommodation nl, no face palsy, no dysarthria Psychiatric: A+Ox3, euthymic affect Lymphatic: no cervical or axillary lymphadenopathy Results & Data Laboratory Results Laboratory Results - last 24 hr 12/05/18 12/05/18 12/05/18 11:10 11:25 11:25 WBC 10.43 RBC 4.85 Hgb 14.1 Hct 41.0 MCV 84.5 MCH 29.1 MCHC 34.4 RDW Std Deviation 41.5 RDW Coeff of Trae 13.5 Plt Count 308 MPV 9.5 Immature Gran % (Auto) 0.3 Neut % (Auto) 73.6 Lymph % (Auto) 19.5 [place] % (Auto) 5.2 Eos % (Auto) 1.2 Baso % (Auto) 0.2 Immature Gran # (Auto) 0.03 H Neut # (Auto) 7.69 H Lymph # (Auto) 2.03 [place] # (Auto) 0.54 Eos # (Auto) 0.12 Baso # (Auto) 0.02 Sodium 134 L Potassium 3.9 Chloride 109 H Carbon Dioxide 21 Anion Gap 4.0 BUN 12 Creatinine 0.79 Est Cr Clr Drug Dosing 131.8 Est GFR ( Amer) 114.8 Est GFR (Non-Af Amer) 99.1 BUN/Creatinine Ratio 14.9 Glucose 113 H Calcium 8.9 Total Bilirubin 0.2 AST 16 ALT 31 Alkaline Phosphatase 107 Troponin I < 0.015 Total Protein 7.7 Albumin 3.4 Globulin 4.3 H Albumin/Globulin Ratio 0.8 L Lipase 148 Urine Color Yellow Urine Appearance Clear Urine pH 7.0 Ur Specific [place] 1.022 Urine Protein Negative Urine Glucose (UA) Negative Urine Ketones Negative Urine Blood Negative Urine Nitrite Negative Urine Bilirubin Negative Urine Urobilinogen Negative Ur Leukocyte Esterase Negative Diagnostic Findings [place], [place] [phone] CT Scan Report Patient: KRUNAL JANE Date: 12/05/18 MR#: [id number] Acct ID:[id number]: Date: [address] Zip: [place] [address] Age: 32Location: ED Sex: F Room/Bed: Att Phy: Diagnosis: CHEST PAIN, TROUBLE BREATHING Maritza Phy: PCP,NO Service Date: 12/05/18 Fam Phy: PCP,NO Interpreting Phy: Claudy Mccoy Admit Phy: Ordering Phy: Abe Medina M.D. cc: ~ ABDOMEN AND PELVIS CT WITH IV CONTRAST CT DOSE: 1543.31 mGy.cm HISTORY: Acute epigastric abdominal pain epig pain, poss pancreatitis TECHNIQUE: Multiaxial CT images of the abdomen and pelvis were performed following the use of intravenous contrast. A dose lowering technique was utilized adhering to the principles of ALARA. COMPARISON STUDY: MRCP 12/14/2017 FINDINGS: Imaged lung bases appear generally clear. No pneumatosis or pneumoperitoneum. Imaged inferior cardiac chambers appear unremarkable. Postoperative changes from prior partial cholecystectomy. Cholelithiasis noted within the remnant of the gallbladder. No choledocholithiasis or intrahepatic biliary ductal dilation. The liver, spleen and adrenal glands are within normal limits. No pancreatic ductal dilation. No inflammatory stranding about the pancreas to suggest acute pancreatitis. There is no subphrenic ovoid mass which is predominantly fatty attenuating involving the superior and posterior aspects of the superior pole left kidney, 4.0 x 7.2 x 6.4 cm in AP, transverse and craniocaudal dimensions. Vessels are noted coursing centrally into this lesion. No evidence of associated hemorrhage. Kidneys are otherwise unremarkable. No renal calculi, ureteral calculi or obstructive uropathy. Bladder is partially decompressed. Uterus and adnexa are unremarkable. Follicular changes of the ovaries. Aorta and IVC are unremarkable. No adenopathy. Mild wall thickening noted about the distal esophagus. No bowel obstruction or focal bowel wall thickening. Mild colonic diverticulosis without acute diverticulitis. Terminal ileum and appendix appear unremarkable. No ascites or mesenteric inflammatory changes. Soft tissues appear to be within normal limits. Bones appear to be intact. Transitional lumbosacral anatomy. IMPRESSION: 1. No bowel obstruction or focal bowel wall thickening. Normal appendix. 2. Cholelithiasis with postoperative changes from prior partial cholecystectomy. 3. 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 Note that at this large size, the lesion is at high risk for spontaneous hemorrhage. 4. Unremarkable CT appearance of the pancreas. Electronically signed by: Brooks Mccoy M.D. 12/05/2018 12:21 PM
[2018-12-05] MEDS ORDERED: NEOSTIGMINE METHYLSULFATE 5 MG/5 ML SYR ONE (14:41)
[2018-12-05] MEDS ORDERED: ONDANSETRON INJ 2 MG/ML 2 ML VIAL ONE (14:41)
[2018-12-05] MEDS ORDERED: ROCURONIUM BROMIDE 10 MG/ML 5 ML VIAL ONE (14:41)
[2018-12-05] MEDS ORDERED: MIDAZOLAM HCL 1 MG/ML 2ML VIAL ONE (14:41)
[2018-12-05] MEDS ORDERED: KETOROLAC 30 MG/ML VIAL ONE ×2 (14:41→17:28)
[2018-12-05] MEDS ORDERED: LIDOCAINE HCL 2% 2 ML VIAL/AMP(20MG/ML) INFIL ONE (14:41)
[2018-12-05] MEDS ORDERED: LARYING-O-JET KIT (LTA) ONE (14:41)
[2018-12-05] MEDS ORDERED: PHENYLEPHRINE 100MCG/ML 5ML SYR ONE (14:41)
[2018-12-05] MEDS ORDERED: ePHEDrine sulfate 50 MG/ML SYR ONE (14:41)
[2018-12-05] MEDS ORDERED: fentaNYL citrate 100 MCG/2 ML VIAL ONE (14:41)
[2018-12-05] MEDS ORDERED: DEXAMETHASONE SOD INJ 4 MG/ML VIAL ONE (14:41)
[2018-12-05] MEDS ORDERED: GLYCOPYRROLATE 0.2 MG/ML VIAL ONE (14:41)
[2018-12-05] MEDS ORDERED: IOPAMIDOL INJ 61% 15 ML VIAL ONE (14:53)
[2018-12-05] MEDS ORDERED: BUPIVACAINE 0.5 % 5 MG/1 ML MPF 30ML VIAL ONE (14:53)
--- NOTE | 2018-12-05 14:56 | Anesthesiology Consultation ---
Date of Service December 05, 2018 Assessment & Plan (1) Encounter for pre-operative examination: Chart Review Chart Review: Acceptable Risk for Surgery Consults Requested none ASA ASA3 Proposed Anesthesia Anesthesia Type: General Risk / Benefits Reviewed With: PT / POA / Parent / Guardian, Accepts Plan and Informed Consent Obtained NPO Date Last Intake of Fluids: 12/05/18 Time Last Intake of Fluids: 13:00 Date Last Intake of Solids: 12/04/18 Time Last Intake of Solids: 21:00 History Surgery Operation Date: 12/05/18 07:30 Proposed Procedures p Laparoscopic Cholecystectomy, Possible Open, Possible Cholangiogram - Lux Velazco DO, FACS Height/Weight Height: 5 ft 6 in Weight: 115.2 kg Allergies Allergy/AdvReac Type Severity Reaction Status Date / Time No Known Allergies Allergy Unverified 12/05/18 11:39 Medications Home Medications Medication Instructions Recorded Confirmed Last Taken No Known Home Medications 12/05/18 12/05/18 Unknown Active Medications Generic Name Dose Route Start Last Admin Trade Name Freq PRN Reason Stop Dose Admin Ioversol 94 ml 12/05/18 12:08 12/05/18 12:08 Optiray 320 100ml IV 12/09/18 12:07 94 ml ONCE PRN Administration Interaction Checking Morphine Sulfate 4 mg 12/05/18 11:01 12/05/18 12:19 Morphine Sulfate IV 12/19/18 11:00 4 mg Q15M PRN Administration Pain Past Medical History Medical History Tubal ligation status (Resolved) GERD (gastroesophageal reflux disease) Past Family History Family History Other Heart disease Past Surgical History Surgical History S/P section S/P laparoscopic cholecystectomy S/P myringotomy with insertion of tube Social History Smoking Status: Current every day smoker tobacco type: cigarettes Smoking cigarettes per day: 20 Hx Alcohol Use: No Hx Substance Use: No Physical Exam Vital Signs Last Vital Signs Temp 97.5 F L 12/05/18 10:51 Pulse 67 12/05/18 14:47 Resp 17 12/05/18 14:47 BP 111/65 12/05/18 14:47 Pulse Ox 99 12/05/18 14:47 ENMT Mouth: no dentition abnormality Thyromental Distance: > or= 3.5 Finger Breadths Mallampati Class: II Neck normal visual inspection Respiratory normal respiratory effort Auscultation: lungs clear to auscultation bilaterally Cardiovascular Rate/Rhythm: regular rate and regular rhythm Testing Electrocardiogram Date: 12/05/18 SB with marked sinus arrhythmia rate 59 bpm Laboratory Results 12/05/18 11:25 12/05/18 11:25 Urine Color Yellow 12/05/18 11:10 Urine Appearance Clear (Clear) 12/05/18 11:10 Urine pH 7.0 (4.5-7.5) 12/05/18 11:10 Ur Specific [place] 1.022 (1.000-1.030) 12/05/18 11:10 Urine Protein Negative (Negative) 12/05/18 11:10 Urine Glucose (UA) Negative (Negative) 12/05/18 11:10 Urine Ketones Negative (Negative) 12/05/18 11:10 Urine Nitrite Negative (Negative) 12/05/18 11:10 Ur Leukocyte Esterase Negative (Negative) 12/05/18 11:10
[2018-12-05] MEDS ORDERED: SCOPOLAMINE 1.5 MG TDSY ONE (14:57)
[2018-12-05] MEDS ORDERED: SUCCINYLCHOLINE CHLORIDE 20 MG/ML 10 ML VIAL ONE (14:59)
[2018-12-05] MEDS ORDERED: SCOPOLAMINE 1.5 MG TDSY TD SCH (15:30)
[2018-12-05] MEDS ORDERED: CEFAZOLIN 2,000 MG/15 ML IV PUSH IV ONE (15:43)
[2018-12-05] MEDS ORDERED: CEFAZOLIN 2000MG 2,000 MG/15 ML SYR IV SCH ×2 (16:45→18:15)
--- NOTE | 2018-12-05 17:44 | Fluoroscopy Report ---
[place] cholangiogram OR CLINICAL HISTORY: CHOLANGIOGRAM, cholecystectomy COMPARISON STUDY: MRCP dated 12/14/2017 FLUOROSCOPY TIME: 62nd. NUMBER OF FLUOROSCOPIC IMAGES: 2 FINDINGS: There is contrast within the duodenum and gallbladder. Opacification of the common bile jl t is limited. No definite filling defects are visualized. IMPRESSION: Very limited study. No definite filling defects within the visualized portions of the co mmon bile duct. There is contrast within the duodenum. Electronically signed by: Gerry Holm M.D. 12/05/2018 5:42 PM
--- NOTE | 2018-12-05 18:10 | Operative Report ---
Post Operative Report Pre & Post Diagnosis Operation Date: 12/05/18 07:30 Pre-Op Diagnosis: Cholelithiasis with chronic cholecystitis Post-Op Diagnosis: Cholelithiasis with chronic cholecystitis plus acute cholecystitis Procedure Operation Date: 12/05/18 07:30 Actual Procedures p Laparoscopic Remnant Cholecystectomy with Cholangiogram(Not Applicable) - Lux Velazco DO, GENARO Surgeon Lux Velazco DO, GENARO [employer] Captain Drea Soriano PA-C Estimated Blood Loss 10 Findings Consistent with Post-Op Diagnosis Remnant gallbladder identified the staple line and clips in place. Significant inflammation in the right upper quadrant in the gallbladder fossa. Gallbladder remnant filled with stones, acute on chronic inflammation. Critical view of safety obtained, cholangiogram performed, somewhat limited study but obvious filling of common bile duct. Cystic duct and artery clipped and divided. Good hemostasis. 10 mm JOE drain left. Specimens Remnant gallbladder and contents Drains 10 mm JOE in gallbladder fossa Anesthesia Type General Complications none Disposition Accompanied Patient To Recovery: No Disposition: Recovery Room Indications 32-year-old female status post laparoscopic cholecystectomy 1 year ago for acute on chronic cholecystitis, patient had a subtotal cholecystectomy performed due to significant inflammation in the area of the cystic and common duct. She started having intermittent abdominal pain, which worsened overnight after eating sausage for dinner yesterday. CT revealed remnant gallbladder with significant amount of gallstones, no obvious cholecystitis. Labs were overall normal. After discussion the patient elected for laparoscopic cholecystectomy, possible cholangiogram, possible open. The risks of the procedure were discussed, all questions were answered, and the patient agreed to proceed with surgery as planned. Description of Procedure The patient was properly identified, consented, and taken to the operating room where she was placed in the supine position. General endotracheal anesthesia was induced. SCDs and a safety belt were placed. Preoperative antibiotics were administered. The patient's abdomen was prepped and draped in the standard sterile fashion. A surgical timeout was performed and all parties were in agreement that this was the correct patient and procedure to be performed and we continued as planned. An incision was made superior and to the left of the umbilicus overlying the rectus muscle and the Veress needle was inserted. Saline drop test confirmed entry into the peritoneum. The abdomen was insufflated with carbon dioxide which the patient tolerated without incident. The abdomen was then entered using the Optiview technique and a 5 mm trocar. The laparoscope was inserted and no damage from initial trocar or Veress needle placement was noted, no gross abnormalities were noted within the 4 quadrants of the abdomen. The subxiphoid scar from the original surgery was hypertrophic and was excised. An 11 mm port was placed in the subxiphoid position and two 5 mm ports were then placed in the right subcostal position. The patient was placed in reverse Trendelenburg position and rotated towards the left. There is significant inflammation in the gallbladder fossa. The liver was elevated and the omental adhesions were taken down with harmonic scalpel. After using a combination of harmonic and blunt dissection, the superior aspect of the gallbladder remnant was identified. There is noted to be a staple line along with several clips in this area. This area was densely adhesed to the liver. The superior aspect of the gallbladder remnant was retracted towards the left upper quadrant and the infundibulum was retracted toward the right lower quadrant revealing Calot's triangle. We continued with dissection using blunt dissection along the posterior wall of the gallbladder. Eventually we were able to get a window around the gallbladder remnant and continued this dissection down to the cystic duct. The cystic duct and artery were circumferentially dissected. A window of safety was obtained showing the cystic duct entering the gallbladder with no aberrant structures noted. The cholangiocatheter was then used to perform an intraoperative cholangiogram which was difficult and poor quality, but showed no filling defects, and good filling of the duodenum and hepatic radicals with contrast. The cystic duct was triply clipped and the cystic artery was doubly clipped and both were divided. The gallbladder remnant was then lifted off the gallbladder fossa with electrocautery. The gallbladder was placed in an Endo Catch bag and removed through the subxyphoid port site. The right upper quadrant was irrigated and hemostasis was found to be good. A 10 mm flat JOE drain was placed in the gallbladder fossa and exited through the lateral right subcostal port site. The remaining trochars were removed under direct visualization and the abdomen was allowed to collapse. The subxiphoid port site fascia was closed with 0 Vicryl suture. The wound was irrigated, and the skin of all ports was closed with 4-0 Monocryl subcuticular sutures. Dermabond was placed over the wounds. The patient was extubated in the operating room and taken to the PACU where she recovered without apparent incident. All sponge, instrument and needle counts were correct at the conclusion of the procedure. The patient tolerated the procedure well. The physician's registered dental assistant rda was present and scrubbed for the entirety of the case and was essential in positioning the patient, prepping and draping, retraction and exposure, driving the laparoscope, removal of the gallbladder, closure the incisions, and placement of the dressings. I attest to the content of the Intraoperative Record and any orders documented therein. Any exceptions are noted below.
[2018-12-05] MEDS ORDERED: MoRPHine SULFATE 4 MG/ML 1 ML CARP\\VIAL IV PRN ×2 (18:13)
[2018-12-05] MEDS ORDERED: OXYCODONE/ACETAMINOPHEN 5mg/325mg TAB PO PRN (18:13)
[2018-12-05] MEDS ORDERED: ONDANSETRON INJ 2 MG/ML 2 ML VIAL IV PRN (18:13)
[2018-12-05] MEDS ORDERED: MoRPHine SULFATE 2 MG/ML CARP IV PRN (18:13)
--- NOTE | 2018-12-05 18:47 | Anesthesiology Progress Note ---
Date of Service December 05, 2018 Anesthesia Post Procedure Vital Signs Vital Signs: Temp Pulse Pulse Pulse Resp BP BP 12/05/18 18:40 65 16 114/66 12/05/18 18:30 69 16 116/66 12/05/18 18:20 67 16 120/66 12/05/18 18:11 36.7 C 64 16 119/67 12/05/18 15:14 37 C 78 18 121/79 12/05/18 14:47 67 17 111/65 12/05/18 14:00 68 17 110/62 12/05/18 12:24 67 18 112/62 12/05/18 11:35 61 18 130/75 12/05/18 11:34 68 20 12/05/18 10:51 36.4 C L 80 28 H 145/89 H Pulse Ox 12/05/18 18:40 93 12/05/18 18:30 94 12/05/18 18:20 97 12/05/18 18:11 96 12/05/18 15:14 99 12/05/18 14:47 99 12/05/18 14:00 100 12/05/18 12:24 98 12/05/18 11:35 96 12/05/18 11:34 98 12/05/18 10:51 100 Pain Intensity Chest: Pain Intensity: 4 Abdomen: Pain Intensity: 4 Notes Mental Status: alert / awake / arousable Patient Amnestic to Procedure: Yes Nausea / Vomiting: adequately controlled Pain: adequately controlled Airway Patency, RR, SpO2: stable & adequate BP & HR: stable & adequate Hydration State: stable & adequate Anesthetic Complications: no major complications apparent and Pt Satisfied with anesthetic care
[2018-12-05] MEDS ORDERED: ACETAMINOPHEN 325 MG TAB PO PRN (19:24)
[2018-12-05] MEDS: CHECK SCOPOLAMINE PATCH PLACEMENT SCH ×2 (20:01→23:33)
[2018-12-05] MEDS: LACTATED RINGER'S 1,000 ML IV SCH ×2 (20:01→23:31)
[2018-12-05] MEDS: OXYCODONE/ACETAMINOPHEN 5mg/325mg TAB PO PRN (22:16)
[2018-12-05] MEDS: cefOXitin 2,000 MG in DEXTROSE 5% 50 ML IV SCH (22:17)
[2018-12-06] MEDS: cefOXitin 2,000 MG in DEXTROSE 5% 50 ML IV SCH ×3 (03:47→15:21)
[2018-12-06] MEDS: OXYCODONE/ACETAMINOPHEN 5mg/325mg TAB PO PRN ×2 (03:52→14:05)
[2018-12-06 07:32] LABS: Basophils # (auto) 0.01 K/uL (0-0.2); Basophils % (auto) 0.1 %; Eosinophils # (auto) 0.02 K/uL (0-0.5); Eosinophils % (auto) 0.1 %; Hematocrit (blood only) 39.3 % (37-47); Hemoglobin 12.9 g/dL (12.0-16.0); Immature Granulocytes # (auto) 0.06 K/uL (0.00-0.02); Immature Granulocytes % (auto) 0.4 %; Lymphocytes # (auto) 2.05 K/uL (1.2-3.4); Lymphocytes % (auto) 14.1 %; Mean Corpuscular Hgb Conc 32.8 g/dL (32-36); Mean Corpuscular Volume 86.6 fL (80-100); Mean Platelet Volume 9.4 fL (7.4-10.4); Monocytes # (auto) 0.85 K/uL (0.11-0.59); Monocytes % (auto) 5.8 %; Neutrophils # (auto) 11.54 K/uL (1.4-6.5); Neutrophils % (auto) 79.5 %; Platelet Count 289 K/uL (130-400); RDW Coefficient of Variation 13.8 % (11.5-14.5); RDW Standard Deviation 43.4 fL (36.4-46.3); Red Blood Count 4.54 M/uL (4.2-5.4); White Blood Count 14.53 K/uL (4.8-10.8)
[2018-12-06] MEDS: CHECK SCOPOLAMINE PATCH PLACEMENT SCH ×2 (07:49→15:23)
[2018-12-06] MEDS: LACTATED RINGER'S 1,000 ML IV SCH (07:49)
[2018-12-06 07:57] LABS: Alanine Aminotransferase 67 U/L (12-78); Albumin Level 2.8 gm/dl (3.4-5.0); Aspartate Aminotransferase 43 U/L (15-37); BUN Creatinine Ratio 9.6 (10-20); Bilirubin Direct < 0.1 mg/dl (0-0.2); Blood Urea Nitrogen 7 mg/dl (7-18); Calcium 8.1 mg/dl (8.5-10.1); Carbon Dioxide 21 mmol/L (21-32); Chloride 107 mmol/L (98-107); Est GFR (African American) 120.3; Est GFR (Non-African American) 103.8; Glucose 123 mg/dl (70-99); Potassium 4.1 mmol/L (3.5-5.1); Sodium 136 mmol/L (136-145)
[2018-12-06 08:00] LABS: Alkaline Phosphatase 82 U/L (45-117); Bilirubin,Total 0.3 mg/dl (0.2-1); Total Protein 6.6 gm/dl (6.4-8.2)
--- NOTE | 2018-12-06 08:44 | Surgery Progress Note ---
Date of Service December 06, 2018 Assessment & Plan (1) Cholelithiasis with chronic cholecystitis: POD #1 s/p Laparoscopic Remnant Cholecystectomy Patient seen and examined with Dr. Velazco. AM labs reviewed Pain controlled with PO pain medication. Tolerating regular diet. Will check on after lunch for possible discharge. Return precautions reviewed. Both verbal and written discharge instructions provided. Patient to follow-up in Gen Surg clinic in 1-2 week. Patient to follow-up with Dr. Aubrey Bravo, Urology, regarding incidental finding of renal angiomyolipoma. Subjective Resting comfortably in bed- eating breakfast. No issues or concerns overnight. Tolerating regular diet. Pain controlled with PO pain med. Physical Exam 2 Vital Signs (Past 24 Hours): Last Vital Signs Temp 36.9 C 12/06/18 08:32 Pulse 57 L 12/06/18 08:32 Resp 16 12/06/18 08:32 BP 98/65 L 12/06/18 08:32 Pulse Ox 96 12/06/18 08:32 Gastrointestinal (Abdomen): Inspection/Auscultation: + abdominal surgical incision (Dermabond- incisions clean, dry, intact. No signs of infection. ) and + abdominal surgical drain present (serosang drainage. ) Percussion/Palpation : abdomen soft; abdomen nontender and no guarding
[2018-12-06] MEDS ORDERED: MoRPHine SULFATE 4 MG/ML 1 ML CARP\\VIAL IV PRN (11:49)
--- NOTE | 2018-12-07 13:48 | Discharge Summary ---
Date of Service December 07, 2018 Admission HPI Per Admitting Provider 32-year-old female presented to the emergency department with abdominal pain. She underwent a laparoscopic subtotal cholecystectomy 1 year ago for severe acute cholecystitis. She did well after the surgery, however over the past few months she has been having intermittent epigastric and right upper quadrant pain that radiates to her chest and back. She notes that this is commonly associated with fatty meals. She ate sausage yesterday and had some reflux, and then developed the same pain. She notes that this pain is the same as it was when she presented for cholecystitis last year. Currently her pain is improved with morphine but still present. She denies any jaundice or alcholic stools. Principal Diagnosis Cholelithiasis with chronic cholecystitis plus acute cholecystitis Discharge Data Allergies Allergy/AdvReac Type Severity Reaction Status Date / Time No Known Allergies Allergy Unverified 12/05/18 11:39 Consultations 12/05/18 14:24 ED Decision to Admit Stat Procedures Performed Operation Date: 12/05/18 07:30 Actual Procedures p Laparoscopic Remnant Cholecystectomy with Cholangiogram(Not Applicable) - Lux Velazco DO, FACS Ordered Studies 12/05/18 11:01 CT abd pelvis IV con only Stat 12/05/18 14:55 [place] cholangiogram OR Routine Hospital Course (1) Cholelithiasis with chronic cholecystitis: Pre-Op Diagnosis:Cholelithiasis with chronic cholecystitis Post-Op Diagnosis:Cholelithiasis with chronic cholecystitis plus acute cholecystitis Procedure Operation Date: 12/05/18 07:30 Actual Procedures p Laparoscopic Remnant Cholecystectomy with Cholangiogram(Not Applicable) - Lux Velazco DO, FACS JOE drain was placed intraoperatively. Post-operatively, patient was admitted to Med/Surg for observation, IV and PO pain medication. Diet was advanced as tolerated. POD #1 s/p Laparoscopic Remnant Cholecystectomy Patient seen and examined with Dr. Velazco. AM labs reviewed Pain controlled with PO pain medication. Tolerating regular diet. Will check on after lunch for possible discharge. Return precautions reviewed. Both verbal and written discharge instructions provided. Patient to follow-up in Gen Surg clinic in 1-2 week. Patient to follow-up with Dr. Aubrey Bravo, Urology, regarding incidental finding of renal angiomyolipoma. Total Time Total Time Spent Total Time Spent (In Minutes): 5 Discharge Plan Discharge Items Patient Disposition: Home - Self-Care Reason For Visit: S/P LAPAROSCOPIC REMNANT CHOLECYSTECTOMY W/ CHOLAN Discharge Diagnosis: Chest Pain, Trouble Breathing Discharge Goals: Decrease discomfort and Improve function Activity: As commented below Lifting: No more than 10 pounds Bathing Comment: May shower, but do not soak or scrub your incisions. Driving/Machine Use: Resume 1 day after discharge Driving/Machine Use Comment: Do not drive within 12 hrs of taking Percocet. Non-emergency contact: Surgeon Call non-emergency contact if: you have any medication questions, your pain is not controlled, your temperature is above 101.5, your wound has increased redness and your wound has increased drainage Follow-up/Referrals: Aubrey Bravo MD [Surgeon] - (Please call to schedule an appointment with Dr. Aubrey Bravo. ) Lux Velazco DO, FACS [Physician] - (Please follow-up with Dr. Velazco in the [facility] in 1-2 weeks. Please call our clinic at [phone] with any questions or concerns. ) PCP,NO [Primary Care Provider] - Diet: Regular Addtl Provider Instructions: You have surgical glue, Dermabond, over your incisions. You may shower, but do not soak or scrub your incisions. Do not submerge your incisions in any pools, baths, or hot tubs. Please call the General Surgery clinic at [phone] with any questions or concerns. Prescriptions: New oxycodone-acetaminophen [Percocet] 5-325 mg tablet 1 - 2 tab PO Q6H PRN (Reason: pain) 3 Days Qty: 24 RF: 0 No Action No Known Home Medications RF: 0 Visit Report Forms: [facility] [facility] Stand-Alone Forms: Call Back Authorization, [facility] [employer], Opioid Pain Management Discharge Orders: Discharge Order (Routine); Ordered 12/06/18 Ordered By: Drea Soriano Admission Data Admit Date/Time: 12/05/18 18:14 Attending Provider: Lux Velazco Admit Provider: Lux Velazco Primary Care Provider: PCP,NO Other Providers: Lux Velazco Service: Surgical Services Other Interventions: Discharge Summary Assessment (RN) Last Done: 12/06/18 17:17 Pending Studies at Discharge: Yes Studies:: Pathology report. DC Date/Time DO NOT enter until pt leaves facility: 12/06/18 18:07
== END 2018-12-06 18:07 | disposition home or self-care (01) ==
LOC: ED 10:44 → 3W 14:58 → OR 14:58